=== PATIENT | male | born 1950 | race Caucasian/White ===

== ENCOUNTER → 2018-03-24 10:52 | Outpatient (CLI) | payer OTHER, SELFPAY ==
--- NOTE | 2018-03-24 10:57 | RAD_ITS ---
STUDY: X-RAY - RIGHT SHOULDER REASON FOR EXAM: Male, 67 years old. Pain TECHNIQUE: 4 view(s) of the shoulder. COMPARISON: None. FINDINGS: There is mild degenerative arthrosis of the glenohumeral articulation. There is degenerative arthrosis of the acromioclavicular joint without inferior osseous spur formation. Normal acromion. Normal humeral head and visualized proximal humerus. The soft tissue structures are unremarkable. Normal visualized pulmonary apex. RAD/Shoulder min 2 Views IMPRESSION: Degenerative arthrosis Electronically Signed: Rafael Santiago MD at 11:31 EDT , Service support ,
--- NOTE | 2018-03-24 10:58 | RAD_ITS ---
STUDY: X-RAY - LEFT SHOULDER REASON FOR EXAM: Male, 67 years old. Pain TECHNIQUE: 4 view(s) of the shoulder. COMPARISON: None. FINDINGS: Normal glenohumeral articulation. There is degenerative arthrosis of the acromioclavicular joint without inferior osseous spur formation. Normal acromion. Normal humeral head and visualized proximal humerus. The soft tissue structures are unremarkable. Normal visualized pulmonary apex. RAD/Shoulder min 2 Views IMPRESSION: Degenerative arthrosis Electronically Signed: Rafael Santiago MD at 11:33 EDT , Service support ,
== END ==
PROVIDERS: Visit Provider Chiropractor
DX: M19.011 Primary osteoarthritis, right shoulder (principal); M19.012 Primary osteoarthritis, left shoulder
CPT/HCPCS: 73030

== ENCOUNTER 2018-05-23 11:26 | Inpatient (IN) | payer OTHER, MEDICARE, SELFPAY ==
[2018-05-23] VITALS (14 sets, daily range): BP systolic 92–159; BP diastolic 56–94; PULSE 74–114; RESP 14–18; TEMP 36.4–37.4; O2SAT 93–98; BMI 21.9; BMI 21.8
--- NOTE | 2018-05-23 12:08 | CT_ITS ---
STUDY: CT ABDOMEN AND PELVIS WITHOUT CONTRAST REASON FOR EXAM: Male, 67 years old. Bilateral lower abdominal pain. RADIATION DOSAGE (If Supplied By Facility): CTDIvol = ( 8.32 ) mGy, DLP = ( 353.84 ) mGycm TECHNIQUE: Transaxial images were obtained from the dome of the diaphragm to the symphysis pubis without oral contrast, and without intravenous contrast. Sagittal and coronal images were reconstructed. Individualized dose optimization techniques were used for this CT. COMPARISON: None. FINDINGS: There is right basilar dependent atelectasis and possible airspace disease. There may be left basilar subsegmental atelectasis. No pleural effusions are visualized. The visualized portions of the heart are within normal limits. There is decreased attenuation of the liver consistent with steatosis. Normal gallbladder and extrahepatic biliary system. Normal spleen. Normal pancreas. Normal bilateral adrenal glands. Normal right kidney. Normal left kidney. There is a edema within the roper of the gastric antrum and pylorus. The roper measure up to 7.2 mm. There may be some enhancement of the gastric mucosa. The result of acute infection or inflammation. There appears to be dilated small bowel with enhancement of the roper of small bowel. Maximum transverse dimension of the small bowel is approximately 2.6 cm. Of fluid is visible within the distal small bowel. This appears to involve the ilium primarily appeared to proximal small bowel is not dilated. There appears to be some enhancement thickening of the roper of the jejunum. Stool is visible throughout the transverse colon. There is moderate amount of fluid within the pelvis. There is an appendicolith at the proximal appendix. There is a tubular, thick-walled appendix (>7mm), consistent with acute appendicitis. There is diffuse atherosclerotic calcification of the abdominal aorta with elongation and tortuosity, but without a demonstrated aneurysm. There is extensive atherosclerotic calcification of the common iliac arteries, internal and external iliac arteries. Normal inferior vena cava. Normal retroperitoneum. Urinary bladder wall is thickened measuring approximately 6.8 mm. Normal visualized prostate gland. Normal abdominal wall. There are diffuse degenerative changes of the visualized lumbar spine. The bones appear osteopenic. CT/Abdomen/Pelvis W IV Cont ONLY IMPRESSION: 1. Appears to be acute inflammation of the gastric antrum and pylorus. 2. Apparent enhancement and inflammation of the small bowel with questionable small bowel obstruction versus ileus. 3. CT findings suggestive of acute appendicitis with a moderate amount of pelvic fluid. N.B. : The above information has been verbally conveyed by Elisabeth Merchant MD to Maxwell Red MD, on 05/23/2018 14:19:54 (ET). Electronically Signed: Elisabeth Merchant MD at 14:20 EDT , Service support ,
--- NOTE | 2018-05-23 12:08 | EKG12_ITS ---
Test Reason : AB PAIN Blood Pressure : / mmHG Vent. Rate : 101 BPM Atrial Rate : 101 BPM P-R Int : 130 ms QRS Dur : 078 ms QT Int : 344 ms P-R-T Axes : 073 058 075 degrees QTc Int : 446 ms Sinus tachycardia Otherwise normal ECG Confirmed by CHARLES CHANDRA, MÓNICA ([id number]), editorial director JASPAL COATES ([id number]) on 05/26/2018 8:59:44 AM Referred By: MYRNA Confirmed By:MÓNICA SOTO MD
--- NOTE | 2018-05-23 12:10 | ED.VISSUMM ---
- ER Visit Summary Date of Service: 05/23/18 Chief Complaint: Abdominal pain History of Present Illness: The patient is a 67 M no senior past medical nor any prior surgical history. Patient states he developed lower abdominal pain yesterday. Denies any fever positive chills. Denies any dysuria. No melena. Nausea but no vomiting. Denies any abdominal trauma. Patient states the pain is in bilateral lower quadrants. Is not radiating to his back. He denies any hematuria. Denies any urinary retention. Physical Examination: Older male initial blood pressure 96/70 10 be rechecked. H EENT exam unremarkable moist wheeze membranes. Neck nontender. Lungs to auscultation bilaterally. Heart tachycardic rate about 115 no murmur. Chest wall nontender. Abdomen soft. Nondistended normal bowel sounds. Mild tenderness in both lower quadrants. No pulsatile mass. Right upper quadrant unremarkable. No signs of obstruction. External exam unremarkable nontender. No swelling. No hernias. Moving all 4 extremities. Neurovascularly intact. No edema. Back exam nontender. Neurologically is awake and alert with no focal motor deficits. Test Results: CBC is elevated with a white count of 13,000. Hemoglobin of 18. No bands. Electrolytes show sodium 133. Gap 11. Normal creatinine. Liver enzymes direct bilirubin slightly elevated at 1.1 alk phos elevated at 129. Lipase is normal. UA is pending. EKG sinus tachycardia rate of 101. CT abdomen and pelvis with IV contrast only shows what the radiologist feels is acute appendicitis. An ileus. There is also inflammation of the lower epigastric region and duodenum. There is pelvic fluid. No pneumoperitoneum per the radiologist. Film was read by the radiologist and reviewed by me. Emergency Department Course and Treatment: Treated with 1 L normal saline. If his pressures greater than 100 he received morphine and Zofran for his abdominal pain. Patient be started on IV Zosyn. I spoke to the on-call general surgeon Dr. Jose Lundberg to will be and evaluate the patient and is going to take him to the OR for suspected appendicitis. Treatment Plan: I discussed all test results with the patient and his . He will be prepared to be taken to the operating room. Disposition: [] Impression: Acute bilateral lower quadrant abdominal pain secondary to acute appendicitis Acute ileus Inflammation of the stomach and proximal small intestine This note was generated with Dragon dictation software. It may contain incorrect words, spelling, and punctuation that were not noted in review of the chart prior to signing ED Disposition - Plan for ED Patient: Chief Complaint: Abd Pain Referrals: Daniel Arce MD [Primary Care Provider] -
--- NOTE | 2018-05-23 12:15 | ED.RN ---
NO OLD EKG'S IN MUSE.
[2018-05-23] MEDS: 0.9% Normal Saline 1,000 ML 1000 ML IV (12:29)
[2018-05-23] MEDS: Ondansetron 4 MG/2 ML Vial IV (12:29)
[2018-05-23] MEDS: Morphine 4 MG/ML Syringe IV (12:30)
[2018-05-23 13:05] LABS: Absolute Lymphocyte Count 0.81 X10^3/ul (0.83-4.51); Absolute Neutrophil Count 11.8 X10^3/uL (2.0-7.7); Basophil# 0.02 X10^3/uL; Basophil% 0.2 % (0-1); Eosinophil# 0.03 X10^3/uL; Eosinophils% 0.2 % (0-5); Hematocrit 54.3 % (40-54); Hemoglobin 18.3 g/dl (13.0-16.5); Lymphocyte # 0.81 X10^3/ul (4.0); Lymphocyte % 6.2 % (19-41); Mean Corp Hgb Conc 33.7 g/gl (32-36); Mean Corpuscular Hgb 31.4 pg (27.0-32.0); Mean Corpuscular Volume 93.1 fL (80-94); Mean Platelet Vol. 11.2 fl (6.2-12.0); Monocyte# 0.33 X10^3/uL; Monocyte% 2.5 % (0-10); Neutrophil % 90.6 % (47-70); POSITIVE COUNT NO; POSITIVE DIFFERENTIAL NO; POSITIVE MORPHOLOGY NO; Platelet Count 273 K/mm3 (150-450); RBC Distribution Width CV 16.4 % (11.6-14.6); RBC Distribution Width SD 55.8 fl (35.1-43.9); Red Blood Count 5.83 M/mm3 (4.6-6.2)
[2018-05-23 13:08] LABS: AST(SGOT) 34 U/L (15-37); Alanine Aminotransfer ALT/SGPT 19 U/L (16-61); Albumin, Serum 3.8 g/dL (3.2-5.0); Alkaline Phosphatase 129 U/L (45-117); Anion Gap 11 (5-15); BUN 15 mg/dL (7-18); BUN/Creat Ratio 13.9 RATIO (10-20); Bilirubin, Direct 0.11 mg/dL (0.00-0.30); Calcium,Total 9.4 mg/dL (8.5-10.1); Chloride 97 mmol/L (98-107); Creatinine, Serum 1.08 mg/dL (0.70-1.30); EST Glomerular Filtration Rate 73 mL/min (>60); Est Glom Filt Rate - Afr Amer 88 mL/min (>60); Estimated Creatinine Clearance 55.25 ml/min; Globulin 4.4 g/dL (2.2-4.2); Glucose 156 mg/dL (74-106); Lipase 50 U/L (73-393); Potassium 5.1 mmol/L (3.5-5.1); Protein, Total 8.2 g/dL (6.4-8.2); Sodium Level 133 mmol/L (136-145)
--- NOTE | 2018-05-23 14:44 | NURSING ---
SURGERY KAMILAH APPENDICITIS THEN 213 OBS ILEUS, ACUTE APPENDICITIS KAMILAH
--- NOTE | 2018-05-23 15:28 | ED.RN ---
telephone report given to Frida in surgery. Denies questions. States team is ready for pt. Pt was escorted to AC/OR by ED JERSEY KNITTER in ED cot. Family at bedside, following pt down to waiting room.
--- NOTE | 2018-05-23 15:39 | PCM.HP.STD ---
Problem List (1) Perforated appendicitis Status: Acute History of Present Illness Date of Admission: 05/23/18 The patient is a 67 year old M who reports he has not been eating for the last 2 days. He says he started having lower abdominal pain yesterday around noon. He said that he is starting have chills. He is having nausea but no vomiting. He says the pain is in both lower quadrants. Past Medical History Allergies No Known Allergies Allergy (Verified 05/23/18 11:29) Home Medications: Ambulatory Orders Medication Instructions Recorded NK [NK] 05/23/18 Surgical History: no surgical history Smoking Status: Current every day smoker Alcohol: Occasional Drugs: None - *Family History Paternal History Items: No pertinent history Review of Systems Constitutional: Reports: Anorexia, Chills. Denies: Fever HEENT: Denies: Difficulty Swallowing Cardiovascular: Denies: Chest Pain Respiratory: Denies: Cough, Shortness of Breath Gastrointestinal: Reports: Abdominal Pain, Nausea. Denies: Diarrhea, Hematemesis, Hematochezia, Vomiting Genitourinary: Denies: Dysuria Musculoskeletal: Denies: Joint Tenderness Skin: Denies: Dryness, Jaundice Neurological: Denies: Difficulty swallowing, Incoordination Psychiatric: Denies: Anxiety Hematologic/ Lymphatic: Denies: Anemia VTE Information - Inpt Only VTE Present on Admission: No VTE Mechan Device Prophylaxis: SCD's Patient Problems: Active and Suspected Problems Perforated appendicitis (Acute) - Physical Exam General: Alert, Oriented x3, Cooperative HEENT: Atraumatic, PERRLA, EOMI, Normocephalic Oral: Moist Mucosa Neck: No JVD Lungs: Normal air movement Cardiovascular: Regular rate, Regular Rhythm Abdomen: Soft, Non-Distended, Guarding, Tender - Tender in the diffuse abdomen. Positive guarding. Extremities: No clubbing Musculoskeletal: No Muscle Wasting Neurological: Cranial nerves II-XII grossly intact Psych/Mental Status: Normal Affect, Appropriate Vital Signs Temp Pulse Resp BP Pulse Ox 97.8 F 98 16 117/93 H 95 05/23/18 14:38 05/23/18 14:44 05/23/18 14:44 05/23/18 14:44 05/23/18 14:44 Oxygen Delivery Method Room Air Weight: 128 lb Body Mass Index (BMI) 21.9 Laboratory Tests Past 24 Hrs 05/23/18 05/23/18 12:30 12:30 WBC 13.0 H RBC 5.83 Hgb 18.3 H* Hct 54.3 H MCV 93.1 MCH 31.4 MCHC 33.7 RDW 16.4 H RDW Differential 55.8 H Plt Count 273 MPV 11.2 Immature Gran % (Auto) 0.300 Neut % (Auto) 90.6 H Lymph % (Auto) 6.2 L Burleigh % (Auto) 2.5 Eos % (Auto) 0.2 Baso % (Auto) 0.2 Absolute Neuts (auto) 11.8 H Absolute Lymphs (auto) 0.81 L Total Counted Not Reportable Diff Path Review May foll Sodium 133 L Potassium 5.1 Chloride 97 L Carbon Dioxide 25.0 Anion Gap 11 BUN 15 Creatinine 1.08 Estim Creat Clear Calc 55.25 Est GFR (MDRD) Af Amer 88 Est GFR (MDRD) Non-Af 73 BUN/Creatinine Ratio 13.9 Glucose 156 H Calcium 9.4 Total Bilirubin 1.10 H Direct Bilirubin 0.11 AST 34 ALT 19 Alkaline Phosphatase 129 H Total Protein 8.2 Albumin 3.8 Globulin 4.4 H Lipase 50 L Clinical Impression(s) from Imaging Studies Abdomen/Pelvis CT 05/23/18 12:08 IMPRESSION: 1. Appears to be acute inflammation of the gastric antrum and pylorus. 2. Apparent enhancement and inflammation of the small bowel with questionable small bowel obstruction versus ileus. 3. CT findings suggestive of acute appendicitis with a moderate amount of pelvic fluid. N.B. : The above information has been verbally conveyed by Elisabeth Merchant MD to Maxwell Red MD, on 05/23/2018 14:19:54 (ET). Electronically Signed: Elisabeth Merchant MD at 14:20 EDT , Service support , Assessment/Plan All Active Problems Perforated appendicitis (Acute) 67-year-old male with free fluid possible perforated appendicitis 1. I reviewed the patient's CT scan. The patient has free fluid in his pelvis and around his liver. He also has thickening of the antrum and duodenum as well as dilation of small bowel. He has an appendicolith in the presumed appendix. It is likely that this is perforated appendicitis but it is possible that is another perforated viscus. I explained this to the patient and his . 2. I recommend expiratory laparoscopy immediately. I will identify the appendix and I did warn the patient of a possibility of ileocecectomy if there is necrosis and perforation. The stomach and duodenum will be inspected but it is possible they are inflamed because of fluid in the abdomen but this could be a perforated ulcer. The patient has been having no pain leading up to this and this is been sudden onset of pain. I explained the risks of the surgery including not limited to bleeding, infection, injury other organs such as the ureter bowels or blood vessels. I also explained the possibility of having to convert to a laparotomy and possibility of bowel resection. I explained that the patient would wake up with a drain and NG tube in place. The patient understands all this and his does as well. The consent for surgery. 3. Patient has been given Zosyn in the ER. Jose Sampson MD Pager: [facility] [address] [place] [address] [address] [place] [address] Office:
--- NOTE | 2018-05-23 15:43 | HP.PCM_ITS ---
Problem List (1) Perforated appendicitis Status: Acute History of Present Illness Date of Admission: 05/23/18 The patient is a 67 year old M who reports he has not been eating for the last 2 days. He says he started having lower abdominal pain yesterday around noon. He said that he is starting have chills. He is having nausea but no vomiting. He says the pain is in both lower quadrants. Past Medical History Allergies No Known Allergies Allergy (Verified 05/23/18 11:29) Home Medications: Ambulatory Orders Medication Instructions Recorded NK [NK] 05/23/18 Surgical History: no surgical history Smoking Status: Current every day smoker Alcohol: Occasional Drugs: None - *Family History Paternal History Items: No pertinent history Review of Systems Constitutional: Reports: Anorexia, Chills. Denies: Fever HEENT: Denies: Difficulty Swallowing Cardiovascular: Denies: Chest Pain Respiratory: Denies: Cough, Shortness of Breath Gastrointestinal: Reports: Abdominal Pain, Nausea. Denies: Diarrhea, Hematemesis, Hematochezia, Vomiting Genitourinary: Denies: Dysuria Musculoskeletal: Denies: Joint Tenderness Skin: Denies: Dryness, Jaundice Neurological: Denies: Difficulty swallowing, Incoordination Psychiatric: Denies: Anxiety Hematologic/ Lymphatic: Denies: Anemia VTE Information - Inpt Only VTE Present on Admission: No VTE Mechan Device Prophylaxis: SCD's Patient Problems: Active and Suspected Problems Perforated appendicitis (Acute) - Physical Exam General: Alert, Oriented x3, Cooperative HEENT: Atraumatic, PERRLA, EOMI, Normocephalic Oral: Moist Mucosa Neck: No JVD Lungs: Normal air movement Cardiovascular: Regular rate, Regular Rhythm Abdomen: Soft, Non-Distended, Guarding, Tender - Tender in the diffuse abdomen. Positive guarding. Extremities: No clubbing Musculoskeletal: No Muscle Wasting Neurological: Cranial nerves II-XII grossly intact Psych/Mental Status: Normal Affect, Appropriate Vital Signs Temp Pulse Resp BP Pulse Ox 97.8 F 98 16 117/93 H 95 05/23/18 14:38 05/23/18 14:44 05/23/18 14:44 05/23/18 14:44 05/23/18 14:44 Oxygen Delivery Method Room Air Weight: 128 lb Body Mass Index (BMI) 21.9 Laboratory Tests Past 24 Hrs 05/23/18 05/23/18 12:30 12:30 WBC 13.0 H RBC 5.83 Hgb 18.3 H* Hct 54.3 H MCV 93.1 MCH 31.4 MCHC 33.7 RDW 16.4 H RDW Differential 55.8 H Plt Count 273 MPV 11.2 Immature Gran % (Auto) 0.300 Neut % (Auto) 90.6 H Lymph % (Auto) 6.2 L [place] % (Auto) 2.5 Eos % (Auto) 0.2 Baso % (Auto) 0.2 Absolute Neuts (auto) 11.8 H Absolute Lymphs (auto) 0.81 L Total Counted Not Reportable Diff Path Review May foll Sodium 133 L Potassium 5.1 Chloride 97 L Carbon Dioxide 25.0 Anion Gap 11 BUN 15 Creatinine 1.08 Estim Creat Clear Calc 55.25 Est GFR (MDRD) Af Amer 88 Est GFR (MDRD) Non-Af 73 BUN/Creatinine Ratio 13.9 Glucose 156 H Calcium 9.4 Total Bilirubin 1.10 H Direct Bilirubin 0.11 AST 34 ALT 19 Alkaline Phosphatase 129 H Total Protein 8.2 Albumin 3.8 Globulin 4.4 H Lipase 50 L Clinical Impression(s) from Imaging Studies Abdomen/Pelvis CT 05/23/18 12:08 IMPRESSION: 1. Appears to be acute inflammation of the gastric antrum and pylorus. 2. Apparent enhancement and inflammation of the small bowel with questionable small bowel obstruction versus ileus. 3. CT findings suggestive of acute appendicitis with a moderate amount of pelvic fluid. N.B. : The above information has been verbally conveyed by Elisabeth Merchant MD to Maxwell Red MD, on 05/23/2018 14:19:54 (ET). Electronically Signed: Elisabeth Merchant MD at 14:20 EDT , Service support , Assessment/Plan All Active Problems Perforated appendicitis (Acute) 67-year-old male with free fluid possible perforated appendicitis 1. I reviewed the patient's CT scan. The patient has free fluid in his pelvis and around his liver. He also has thickening of the antrum and duodenum as well as dilation of small bowel. He has an appendicolith in the presumed appendix. It is likely that this is perforated appendicitis but it is possible that is another perforated viscus. I explained this to the patient and his . 2. I recommend expiratory laparoscopy immediately. I will identify the appendix and I did warn the patient of a possibility of ileocecectomy if there is necrosis and perforation. The stomach and duodenum will be inspected but it is possible they are inflamed because of fluid in the abdomen but this could be a perforated ulcer. The patient has been having no pain leading up to this and this is been sudden onset of pain. I explained the risks of the surgery including not limited to bleeding, infection, injury other organs such as the ureter bowels or blood vessels. I also explained the possibility of having to convert to a laparotomy and possibility of bowel resection. I explained that the patient would wake up with a drain and NG tube in place. The patient understands all this and his does as well. The consent for surgery. 3. Patient has been given Zosyn in the ER. Jose Sampson MD Pager: [phone] [address] [place] [address] [address] [place] [address] Office:
[2018-05-23] MEDS: Bupiv/Epi 0.5% Mpf 30 ML Vial (16:40)
--- NOTE | 2018-05-23 16:58 | EKG12_ITS ---
Test Reason : DISRHYTHMIA Blood Pressure : / mmHG Vent. Rate : 100 BPM Atrial Rate : 100 BPM P-R Int : 136 ms QRS Dur : 078 ms QT Int : 354 ms P-R-T Axes : 067 034 073 degrees QTc Int : 456 ms Normal sinus rhythm Nonspecific ST abnormality Abnormal ECG When compared with ECG of 23-MAY-2018 12:19, MANUAL COMPARISON REQUIRED, DATA IS UNCONFIRMED Confirmed by CHARLES CHANDRA, MÓNICA ([id number]), state editor JASPAL COATES ([id number]) on 05/28/2018 3:14:10 PM Referred By: Confirmed By:MÓNICA SOTO MD
--- NOTE | 2018-05-23 17:02 | OP.PCM_ITS ---
Problem List (1) Perforated appendicitis Status: Acute Report of Operation Date of Procedure: 05/23/18 Pre-Operative Diagnosis: Perforated viscus Post-Operative Diagnosis: Perforated appendicitis Surgery/Procedure Performed:: Laparoscopic appendectomy Description of Surgical Findings:: The patient had a perforation at this distal appendix with a copious amount of purulent fluid in the abdomen. Small bowel was edematous and dilated. Specimen's removed: Appendix Drains: JULIANA to bulb suction Description of Procedure: The patient was brought into the operating room and general anesthesia was induced. A Connelly catheter was placed. The left arm was tucked and the abdomen was prepped and draped in usual sterile fashion. A small midline incision was made inferior to the umbilicus and deepened to the level of the fascia. The fascia was elevated and incised. The peritoneum was also elevated and incised. A finger sweep was performed and a balloon trocar was placed into the abdomen and inflated. The abdomen was insufflated to 15 mmHg and the camera was inserted and the abdomen was inspected for any injuries upon entering the abdomen. There were none. The patient had copious purulent material throughout the abdomen. The patient was placed in Trendelenburg position and a 5 mm ports placed in the left lower quadrant and suprapubic areas under direct visualization. Next using atraumatic bowel graspers the appendix was identified. The appendix had a perforation of the distal part which was leaking purulent material. The appendix was grasped and elevated and and Enseal device was used to take down the mesoappendix. A stapler was used to come across the base of the appendix. The appendix was then placed in Endo Catch bag and removed through the umbilical incision. The staple line was inspected and found to be hemostatic and intact. The abdomen was then irrigated with 3 L of saline and suctioned as dry as I could. A 15 [place] round drain was placed in the left lower quadrant incision and positioned in the pelvis. This was placed to bulb suction and secured with a 3-0 nylon suture. The 2 5 mm ports are removed under direct visualization. The balloon trocar was deflated and removed and all the air was removed from the abdomen. The umbilical incision fascia was closed with an 0 Vicryl [id number] suture. The incisions were then irrigated with saline and dried. Local anesthetic was injected into the incision sites. The skin incisions were then closed with interrupted 4-0 Monocryl suture. Bandages were applied and the patient was awoken and taken to PACU in stable condition. The Connelly and NG tube remained in place at the end of the case. Patient tolerated the procedure well. - Admit VTE Documentation VTE Present on Admission: No VTE Mechan Device Prophylaxis: SCD's
[2018-05-23] MEDS: Dextrose 5%-Lactated Ringers 1,000 ML 125 ML IV (19:22)
[2018-05-23] MEDS: 0.9% NaCl Peripheral Flush Adult/Peds IV (19:23)
[2018-05-23] MEDS: Morphine 2 MG/ML Syringe IV (19:23)
[2018-05-23] MEDS: Piperacil/Tazobactam 3.375 GM/50 ML ML IV (21:55)
--- NOTE | 2018-05-24 | APP_PTH ---
PATIENT: MALA SADLER LOC: MS2 U#:[id number] AGE/SX: 67/M ROOM: [facility] RE05/23/[address]: Dr. Jose Sampson MD : [id number] BED: 1 DIS: 05/29/2018 SPEC #: [id number] RECD: 05/24/18 10:02 STATUS: ALEXEI REDalton #: [id number] RUTH: 05/24/18 00:[address]: Jose Sampson DEPT: SURGICAL PATHOLOGY RECD BY: Pietro Kumar ENTERED: 05/24/18 10:02 SP TYPE: APPENDIX OTHR DR: Dr. Daniel Arce MD Tissues: Appendix, NOS Procedures: Surgery Specimen Level III HEADER OPERATION: Laparoscopic appendectomy PRE-OP DIAGNOSIS: Perforated viscous TISSUE SUBMITTED: Appendix MICROSCOPIC DIAGNOSIS Appendix: Acute appendicitis and periappendicitis. SJ:henry 05/25/18 MICROSCOPIC DESCRIPTION Slides are reviewed. GROSS DESCRIPTION Received is one container labeled with the patient's name and designated appendix. The specimen consists of a vermiform appendix measuring 6.5 cm in length and 1.5 cm in average diameter. No gross perforations are evident. Sections reveal fecaliths. Dice Spotter sections are submitted in one cassette. / AM:henry 05/24/18 TC:2 CPT: 05154
[2018-05-24] MEDS: Dextrose 5%-Lactated Ringers 1,000 ML 125 ML IV ×3 (02:29→18:36)
[2018-05-24 02:36] VITALS: BP 106/67; PULSE 76; RESP 18; TEMP 37.2; O2SAT 97
[2018-05-24] MEDS: Morphine 2 MG/ML Syringe IV ×2 (02:42→18:36)
[2018-05-24] MEDS: Piperacil/Tazobactam 3.375 GM/50 ML ML IV ×3 (05:55→22:36)
[2018-05-24 06:24] LABS: Bacteria 0 SEEN /hpf (None Seen); Mucous, Urine 0 SEEN /hpf (<or=2+); Red Blood Cells-Urine 0 SEEN /hpf (0-5)
[2018-05-24 06:27] LABS: Absolute Lymphocyte Count 1.26 X10^3/ul (0.83-4.51); Basophil# 0.01 X10^3/uL; Basophil% 0.1 % (0-1); Eosinophil# 0.02 X10^3/uL; Eosinophils% 0.1 % (0-5); Hematocrit 40.6 % (40-54); Hemoglobin 13.7 g/dl (13.0-16.5); Lymphocyte # 1.26 X10^3/ul (4.0); Mean Corp Hgb Conc 33.7 g/gl (32-36); Mean Corpuscular Hgb 31.5 pg (27.0-32.0); Mean Corpuscular Volume 93.3 fL (80-94); Mean Platelet Vol. 10.6 fl (6.2-12.0); Monocyte# 0.65 X10^3/uL; Monocyte% 4.7 % (0-10); Neutrophil # 11.98 X10^3/uL (2.7-7.7); Platelet Count 229 K/mm3 (150-450); RBC Distribution Width CV 16.4 % (11.6-14.6); Red Blood Count 4.35 M/mm3 (4.6-6.2); White Blood Count 13.9 K/mm3 (4.4-11.0)
[2018-05-24 06:36] LABS: POSITIVE COUNT NO; POSITIVE DIFFERENTIAL NO; POSITIVE MORPHOLOGY NO
[2018-05-24 06:40] LABS: Anion Gap 7 (5-15); BUN 9 mg/dL (7-18); Calcium,Total 8.1 mg/dL (8.5-10.1); Chloride 104 mmol/L (98-107); Creatinine, Serum 0.69 mg/dL (0.70-1.30); EST Glomerular Filtration Rate 122 mL/min (>60); Est Glom Filt Rate - Afr Amer 147 mL/min (>60); Glucose 169 mg/dL (74-106); Potassium 3.8 mmol/L (3.5-5.1); Sodium Level 138 mmol/L (136-145)
[2018-05-24 07:30] VITALS: BP 119/71; PULSE 76; RESP 16; TEMP 36.9; O2SAT 95
[2018-05-24 07:37] VITALS: RESP 16
[2018-05-24 07:44] LABS: Color, Urine Yellow (Yellow); Glucose, Dipstick Normal (Normal); Ketone-Dipstick Negative (Negative); Leukocyte Esterase-Dipstick 25 /ul (Negative); Nitrite-Dipstick Negative (Negative); Occult Blood-Urine 150 /ul (Negative); Protein-Dipstick 15 mg/dl (Negative); Specific Gravity, Urine 1.015 (1.002-1.030); Urine Bilirubin Dipstick Negative (Negative); Urine Clarity Sl. Cloudy (Clear); Urine Urobilinogen 1 mg/dl (Normal)
[2018-05-24 07:50] LABS: Squamous Epithelial Cells - UA 0-5 SEEN /hpf (0-5); White Blood Cells 0-5 SEEN /hpf (0-5)
--- NOTE | 2018-05-24 08:08 | PN.SURG_ITS ---
Patient Problems: Active and Suspected Problems Perforated appendicitis (Acute) Subjective: Patient is doing well overnight and he reports improvement of pain. - Physical Exam General: Alert, Oriented x3, Cooperative Lungs: Normal air movement Cardiovascular: Regular rate, Regular Rhythm Abdomen: Soft, Non-Distended, Tender - Mildly tender, - - Incisions are clean, dry and intact. JULIANA is serous. Vital Signs Temp Pulse Resp BP Pulse Ox 98.4 F 76 16 119/71 95 05/24/18 07:30 05/24/18 07:30 05/24/18 07:37 05/24/18 07:30 05/24/18 07:30 Oxygen Delivery Method Room Air Weight: 127 lb 3.2 oz Body Mass Index (BMI) 21.8 Intake and Output for Last 24 Hours 05/22/18 05/23/18 05/24/18 23:59 23:59 23:59 Intake Total 2040 / 2040 1555.7 / 1555.7 Output Total 555 / 555 720 / 720 Balance 1485 / 1485 835.7 / 835.7 Laboratory Tests Past 24 Hrs 05/24/18 05/24/18 05/24/18 06:05 06:05 06:05 WBC 13.9 H RBC 4.35 L Hgb 13.7 Hct 40.6 MCV 93.3 MCH 31.5 MCHC 33.7 RDW 16.4 H RDW Differential 55.0 H Plt Count 229 MPV 10.6 Immature Gran % (Auto) 0.100 Neut % (Auto) 86.0 H Lymph % (Auto) 9.0 L [place] % (Auto) 4.7 Eos % (Auto) 0.1 Baso % (Auto) 0.1 Absolute Neuts (auto) 12.0 H Absolute Lymphs (auto) 1.26 Total Counted Not Reportable Sodium 138 Potassium 3.8 Chloride 104 Carbon Dioxide 27.0 Anion Gap 7 BUN 9 Creatinine 0.69 L Estim Creat Clear Calc 59.30 Est GFR (MDRD) Af Amer 147 Est GFR (MDRD) Non-Af 122 BUN/Creatinine Ratio 13.0 Glucose 169 H Calcium 8.1 L Urine Color Yellow Urine Clarity Sl. Cloudy Urine pH 6.0 Ur Specific [place] 1.015 Urine Protein 15 H Urine Glucose (UA) Normal Urine Ketones Negative Urine Occult Blood 150 H Urine Nitrite Negative Urine Bilirubin Negative Urine Urobilinogen 1 H Ur Leukocyte Esterase 25 H Urine RBC 0 SEEN Urine WBC 0-5 SEEN Ur Squamous Epith Cells 0-5 SEEN Urine Bacteria 0 SEEN Urine Mucus 0 SEEN Medical Necessity - Tobacco Use Smoking Status: Current every day smoker Assessment/Plan All Active Problems Perforated appendicitis (Acute) 67-year-old male status post laparoscopic perforated appendectomy 1. Patient is doing well this morning. He has had little to no output from his NG. I will remove this. I plan on keeping the patient n.p.o. until he passes flatus. I feel that he is likely going to have a postoperative ileus. 2. Continue IV antibiotics. Continue JULIANA drainage 3. Good urine output through the night. I will DC his Connelly. Jose Sampson MD Pager: [facility] [address] [place] [address], [address] [place] [address] Office:
[2018-05-24] MEDS: Enoxaparin 40 MG/0.4 ML Syringe SC (09:52)
--- NOTE | 2018-05-24 11:33 | CASEMGMT ---
RN JAYDON Assessment completed. See Link. DC PLAN: home with family support Intro role of CM to patient and his . Pt was independent prior to surgery. Plan is to return home and can assist. Questions answered re: plan of care-NG out, no diet until passes flatus. Cedric MORROWN RN ACM
[2018-05-24 12:51] LABS: Pathologist Review Reviewed
[2018-05-24 13:35] VITALS: BP 112/70; PULSE 85; RESP 12; TEMP 37.4; O2SAT 96
[2018-05-24 15:30] VITALS: BP 118/69; PULSE 80; RESP 18; TEMP 37.3; O2SAT 98
[2018-05-24] MEDS: 0.9% NaCl Peripheral Flush Adult/Peds IV ×3 (16:57→21:47)
[2018-05-24] MEDS: Ondansetron 4 MG/2 ML Vial IV (16:57)
--- NOTE | 2018-05-24 19:40 | RAD_ITS ---
STUDY: X-RAY - ABDOMEN/PELVIS REASON FOR EXAM: Male, 67 years old. Nausea, recent appendectomy TECHNIQUE: Supine views of the abdomen and pelvis were obtained. COMPARISON: CT abdomen and pelvis dated May 23, 2018 FINDINGS: The lung bases are unremarkable. There are dilated loops of small bowel in the mid abdomen. There is minimal free air on the right side of the abdomen consistent with recent surgery. There is a drainage catheter in the right pelvis and right lower quadrant. The soft tissues are unremarkable. There are moderate degenerative changes in the visualized spine. RAD/Abdomen Single View (Portable) IMPRESSION: There are dilated loops of small bowel in the mid abdomen consistent with severe ileus or partial obstruction. Electronically Signed: Alicia Musa MD at 20:15 EDT Tel Direct: [phone], Service support ,
[2018-05-24 21:15] VITALS: BP 118/76; PULSE 75; RESP 16; TEMP 36.7; O2SAT 94
[2018-05-24] MEDS: 0.9% Normal Saline 1,000 ML 999 ML IV (21:31)
--- NOTE | 2018-05-24 21:45 | RAD_ITS ---
STUDY: X-RAY - ABDOMEN/PELVIS REASON FOR EXAM: Male, 67 years old. NG placement. TECHNIQUE: Supine view of the abdomen is submitted. COMPARISON: 7:45 PM. FINDINGS: Nasogastric tube is identified in the distal esophagus. Multiple dilated loops of small bowel are consistent with obstruction. Catheter tubing is projected over the pelvis. No abnormal calcifications are seen. Mild degenerative changes of the lumbar spine are noted. RAD/Abdomen Single View (Portable) IMPRESSION: 1. NG tube terminates in the distal esophagus. This should be advanced at least 6 cm. 2. Small bowel obstruction. Electronically Signed: Bre Zhang MD at 23:13 EDT Tel , Service support ,
[2018-05-24] MEDS: proMETHazine 25 MG/ML Syringe 6.25 MG IV (21:47)
--- NOTE | 2018-05-24 21:47 | RAD_ITS ---
STUDY: X-RAY - ABDOMEN/PELVIS REASON FOR EXAM: Male, 67 years old. NG tube placement TECHNIQUE: Single AP view of the abdomen / pelvis. COMPARISON: May 24, 2018 9:43 PM FINDINGS: Normal visualized lung bases. There are multiple distended loops of small bowel centrally. There is a drain or tubing overlying the right lower quadrant. An NG tube is place tip is in the stomach with side-port is in the distal esophagus. Liver spleen and kidney sare obscured. RAD/Abdomen Single View (Portable) IMPRESSION: Findings suspicious for high-grade ileus or possible small bowel obstruction. There is a drain or tubing overlying the right lower quadrant. NG tube tip is in the stomach. The side-port is in the distal esophagus and could be advanced 5 cm. Electronically Signed: Gricelda Mancia MD at 23:06 EDT Tel , Service support ,
[2018-05-25] MEDS: Dextrose 5%-Lactated Ringers 1,000 ML 125 ML IV ×3 (01:41→18:40)
[2018-05-25] MEDS: Piperacil/Tazobactam 3.375 GM/50 ML ML IV ×3 (05:39→21:49)
[2018-05-25] MEDS: Ondansetron 4 MG/2 ML Vial IV (05:46)
[2018-05-25] MEDS: 0.9% NaCl Peripheral Flush Adult/Peds IV ×2 (05:46→08:27)
[2018-05-25 06:59] LABS: Absolute Lymphocyte Count 0.98 X10^3/ul (0.83-4.51); Absolute Neutrophil Count 11.5 X10^3/uL (2.0-7.7); Basophil# 0.01 X10^3/uL; Basophil% 0.1 % (0-1); Eosinophil# 0.14 X10^3/uL; Eosinophils% 1.1 % (0-5); Hematocrit 39.8 % (40-54); Hemoglobin 13.4 g/dl (13.0-16.5); Lymphocyte # 0.98 X10^3/ul (4.0); Lymphocyte % 7.4 % (19-41); Mean Corp Hgb Conc 33.7 g/gl (32-36); Mean Corpuscular Hgb 31.7 pg (27.0-32.0); Mean Corpuscular Volume 94.1 fL (80-94); Mean Platelet Vol. 10.6 fl (6.2-12.0); Monocyte# 0.59 X10^3/uL; Monocyte% 4.4 % (0-10); Neutrophil # 11.53 X10^3/uL (2.7-7.7); Neutrophil % 86.8 % (47-70); Platelet Count 232 K/mm3 (150-450); RBC Distribution Width CV 16.2 % (11.6-14.6); RBC Distribution Width SD 54.3 fl (35.1-43.9); Red Blood Count 4.23 M/mm3 (4.6-6.2); White Blood Count 13.3 K/mm3 (4.4-11.0)
[2018-05-25 07:03] LABS: POSITIVE COUNT NO; POSITIVE DIFFERENTIAL NO; POSITIVE MORPHOLOGY NO
[2018-05-25 07:41] LABS: Anion Gap 9 (5-15); BUN 6 mg/dL (7-18); BUN/Creat Ratio 10.2 RATIO (10-20); Calcium,Total 8.2 mg/dL (8.5-10.1); Chloride 103 mmol/L (98-107); Creatinine, Serum 0.59 mg/dL (0.70-1.30); EST Glomerular Filtration Rate 146 mL/min (>60); Est Glom Filt Rate - Afr Amer 176 mL/min (>60); Glucose 164 mg/dL (74-106); Potassium 3.5 mmol/L (3.5-5.1); Sodium Level 139 mmol/L (136-145)
--- NOTE | 2018-05-25 07:54 | PCM.PN.SRG ---
Patient Problems: Active and Suspected Problems Perforated appendicitis (Acute) Subjective: Patient had a lot of nausea last night and a KUB revealed dilated small bowel. His NG was replaced. He says since then he has been placed he is now a nausea and his abdominal pain is improved. He is still not passing any flatus. - Physical Exam General: Alert, Oriented x3, Cooperative Neck: Supple Lungs: Normal air movement Cardiovascular: Regular rate, Regular Rhythm Abdomen: Soft, Distended - Mildly distended, Tender Vital Signs Temp Pulse Resp BP Pulse Ox 98.1 F 75 16 118/76 94 05/24/18 21:15 05/24/18 21:15 05/24/18 21:15 05/24/18 21:15 05/24/18 21:15 Oxygen Delivery Method Room Air Weight: 127 lb 3.2 oz Body Mass Index (BMI) 21.8 Intake and Output for Last 24 Hours 05/23/18 05/24/18 05/25/18 23:59 23:59 23:59 Intake Total 2040 / 2040 3233.7 / 3233.7 2589.4 / 2589.4 Output Total 555 / 555 1355 / 1355 1300 / 1300 Balance 1485 / 1485 1878.7 / 1878.7 1289.4 / 1289.4 Laboratory Tests Past 24 Hrs 05/23/18 05/25/18 05/25/18 12:30 06:29 06:29 WBC 13.3 H RBC 4.23 L Hgb 13.4 Hct 39.8 L MCV 94.1 H MCH 31.7 MCHC 33.7 RDW 16.2 H RDW Differential 54.3 H Plt Count 232 MPV 10.6 Immature Gran % (Auto) 0.200 Neut % (Auto) 86.8 H Lymph % (Auto) 7.4 L [place] % (Auto) 4.4 Eos % (Auto) 1.1 Baso % (Auto) 0.1 Absolute Neuts (auto) 11.5 H Absolute Lymphs (auto) 0.98 Total Counted Not Reportable Diff Path Review Reviewed Sodium 139 Potassium 3.5 Chloride 103 Carbon Dioxide 27.0 Anion Gap 9 BUN 6 L Creatinine 0.59 L Estim Creat Clear Calc 59.30 Est GFR (MDRD) Af Amer 176 Est GFR (MDRD) Non-Af 146 BUN/Creatinine Ratio 10.2 Glucose 164 H Calcium 8.2 L Clinical Impression(s) from Imaging Studies KUB X-Ray 05/24/18 19:40 IMPRESSION: There are dilated loops of small bowel in the mid abdomen consistent with severe ileus or partial obstruction. Electronically Signed: Alicia Musa MD at 20:15 EDT Tel Direct: [phone], Service support , KUB X-Ray 05/24/18 21:45 IMPRESSION: 1. NG tube terminates in the distal esophagus. This should be advanced at least 6 cm. 2. Small bowel obstruction. Electronically Signed: Bre Zhang MD at 23:13 EDT Tel , Service support , KUB X-Ray 05/24/18 21:47 IMPRESSION: Findings suspicious for high-grade ileus or possible small bowel obstruction. There is a drain or tubing overlying the right lower quadrant. NG tube tip is in the stomach. The side-port is in the distal esophagus and could be advanced 5 cm. Electronically Signed: Gricelda Mancia MD at 23:06 EDT Tel , Service support , Medical Necessity - Tobacco Use Smoking Status: Current every day smoker Assessment/Plan All Active Problems Perforated appendicitis (Acute) 67-year-old male status post laparoscopic appendectomy for perforated appendicitis 1. The patient is having a postoperative ileus. His NG tube is putting out bilious material. I informed that his NG would stay in place until he is passing flatus. 2. Patient still having copious drainage from his JULIANA. Likely DC the JULIANA tomorrow. 3. Continue antibiotics and n.p.o. with IV fluids. SCDs, PPI, start Lovenox. Jose Sampson MD Pager: [facility] [address] [place] [address], [address] [place] [address] Office:
[2018-05-25] MEDS: Morphine 2 MG/ML Syringe IV (08:27)
[2018-05-25] MEDS: proMETHazine 25 MG/ML Syringe 6.25 MG IV (08:27)
[2018-05-25 08:42] VITALS: BP 142/82; PULSE 72; RESP 16; TEMP 36.8; O2SAT 97
[2018-05-25] MEDS: Enoxaparin 40 MG/0.4 ML Syringe SC (10:21)
[2018-05-25 14:47] VITALS: BP 144/84; PULSE 73; RESP 18; TEMP 36.8; O2SAT 97
[2018-05-25 21:55] VITALS: BP 132/87; PULSE 77; RESP 18; TEMP 37.1; O2SAT 94
[2018-05-26] MEDS: Dextrose 5%-Lactated Ringers 1,000 ML 125 ML IV (03:00)
[2018-05-26 05:21] LABS: Absolute Lymphocyte Count 1.23 X10^3/ul (0.83-4.51); Absolute Neutrophil Count 7.7 X10^3/uL (2.0-7.7); Basophil# 0.02 X10^3/uL; Basophil% 0.2 % (0-1); Eosinophil# 0.31 X10^3/uL; Eosinophils% 3.2 % (0-5); Hematocrit 37.6 % (40-54); Hemoglobin 12.7 g/dl (13.0-16.5); Lymphocyte # 1.23 X10^3/ul (4.0); Lymphocyte % 12.6 % (19-41); Mean Corp Hgb Conc 33.8 g/gl (32-36); Mean Corpuscular Hgb 31.6 pg (27.0-32.0); Mean Corpuscular Volume 93.5 fL (80-94); Monocyte# 0.55 X10^3/uL; Monocyte% 5.6 % (0-10); Neutrophil # 7.67 X10^3/uL (2.7-7.7); Neutrophil % 78.2 % (47-70); Platelet Count 244 K/mm3 (150-450); RBC Distribution Width CV 15.4 % (11.6-14.6); RBC Distribution Width SD 51.4 fl (35.1-43.9); Red Blood Count 4.02 M/mm3 (4.6-6.2); White Blood Count 9.8 K/mm3 (4.4-11.0)
[2018-05-26] MEDS: Piperacil/Tazobactam 3.375 GM/50 ML ML IV ×3 (05:26→21:05)
[2018-05-26 05:33] VITALS: BP 135/88; PULSE 71; RESP 18; TEMP 36.9; O2SAT 94
[2018-05-26 05:37] LABS: Anion Gap 8 (5-15); BUN 4 mg/dL (7-18); BUN/Creat Ratio 6.2 RATIO (10-20); Calcium,Total 8.1 mg/dL (8.5-10.1); Chloride 100 mmol/L (98-107); Creatinine, Serum 0.65 mg/dL (0.70-1.30); EST Glomerular Filtration Rate 131 mL/min (>60); Est Glom Filt Rate - Afr Amer 159 mL/min (>60); Glucose 172 mg/dL (74-106); Potassium 3.2 mmol/L (3.5-5.1); Sodium Level 137 mmol/L (136-145)
[2018-05-26 05:43] LABS: POSITIVE COUNT NO; POSITIVE DIFFERENTIAL NO; POSITIVE MORPHOLOGY NO
--- NOTE | 2018-05-26 08:27 | PN.SURG_ITS ---
Patient Problems: Active and Suspected Problems Perforated appendicitis (Acute) Subjective: Patient evaluated resting comfortably in bed. He notes much improved in energy this morning. He is noting minimal amount of RLQ tenderness. He denies nausea, vomiting. Negative flatus, BM. He has been up ambulating the hallway a few times yesterday. He denies fever. - Physical Exam General: Alert, Oriented x3, Cooperative HEENT: - - NG tube intact with light bilious fluid output Abdomen: Bowel Sounds Present, Soft, Tender - RLQ minimal tenderness, - - Incisions c/d/i. No erythema or infection noted. JULIANA drain intact. Serous drainage in the bulb and on the dressing around the JULIANA drain. Vital Signs Temp Pulse Resp BP Pulse Ox 98.4 F 71 18 135/88 H 94 05/26/18 05:33 05/26/18 05:33 05/26/18 05:33 05/26/18 05:33 05/26/18 05:33 Oxygen Delivery Method Room Air Weight: 127 lb 3.2 oz Body Mass Index (BMI) 21.8 Intake and Output for Last 24 Hours 05/24/18 05/25/18 05/26/18 23:59 23:59 23:59 Intake Total 3233.7 / 3233.7 5159.4 / 5159.4 852 / 852 Output Total 1355 / 1355 3530 / 3530 1020 / 1020 Balance 1878.7 / 1878.7 1629.4 / 1629.4 -168 / -168 Laboratory Tests Past 24 Hrs 05/26/18 05/26/18 05:10 05:10 WBC 9.8 RBC 4.02 L Hgb 12.7 L Hct 37.6 L MCV 93.5 MCH 31.6 MCHC 33.8 RDW 15.4 H RDW Differential 51.4 H Plt Count 244 MPV 10.0 Immature Gran % (Auto) 0.200 Neut % (Auto) 78.2 H Lymph % (Auto) 12.6 L [place] % (Auto) 5.6 Eos % (Auto) 3.2 Baso % (Auto) 0.2 Absolute Neuts (auto) 7.7 Absolute Lymphs (auto) 1.23 Total Counted Not Reportable Sodium 137 Potassium 3.2 L Chloride 100 Carbon Dioxide 29.0 Anion Gap 8 BUN 4 L Creatinine 0.65 L Estim Creat Clear Calc 59.30 Est GFR (MDRD) Af Amer 159 Est GFR (MDRD) Non-Af 131 BUN/Creatinine Ratio 6.2 L Glucose 172 H Calcium 8.1 L Medical Necessity - Tobacco Use Smoking Status: Current every day smoker Assessment/Plan All Active Problems Perforated appendicitis (Acute) I am following this patient in conjunction with Dr. Lucero in Dr. Sampson's absence. Impression: S/p laparoscopic appendectomy for ruptured appendicitis Continue to encourage ambulation and I.S. Remove JULIANA drain tomorrow. Will replace potassium Will order Cepacol throat lozenge Continue NG tube until flatus Continue NPO Continue antibiotics We will continue to monitor this patient Code Visit Inpatient E&M: 94490 Subs Hosp L1 - NO CHARGE; POST-OP
[2018-05-26 08:52] VITALS: BP 138/85; PULSE 70; RESP 18; TEMP 36.6; O2SAT 95
[2018-05-26] MEDS: Enoxaparin 40 MG/0.4 ML Syringe SC ×2 (08:55→08:57)
[2018-05-26] MEDS: BENZOCAINE/MENTHOL 1 LOZENGE 2 LOZENGE MUCOUS MEM (08:58)
[2018-05-26] MEDS: Dextrose 5%-Lactated Ringers 1,000 ML 75 ML IV (12:04)
[2018-05-26 14:35] VITALS: BP 138/87; PULSE 70; RESP 18; TEMP 37; O2SAT 96
[2018-05-26 21:06] VITALS: BP 130/84; PULSE 64; RESP 16; TEMP 36.9; O2SAT 95
[2018-05-27 02:30] VITALS: BP 129/84; PULSE 64; RESP 16; TEMP 37.2; O2SAT 95
[2018-05-27] MEDS: Dextrose 5%-Lactated Ringers 1,000 ML 75 ML IV (05:18)
[2018-05-27] MEDS: Piperacil/Tazobactam 3.375 GM/50 ML ML IV ×3 (05:18→21:35)
[2018-05-27 05:34] LABS: Absolute Lymphocyte Count 1.32 X10^3/ul (0.83-4.51); Absolute Neutrophil Count 6.3 X10^3/uL (2.0-7.7); Basophil# 0.04 X10^3/uL; Basophil% 0.5 % (0-1); Eosinophil# 0.29 X10^3/uL; Eosinophils% 3.4 % (0-5); Hematocrit 40.5 % (40-54); Hemoglobin 13.3 g/dl (13.0-16.5); Lymphocyte # 1.32 X10^3/ul (4.0); Lymphocyte % 15.5 % (19-41); Mean Corp Hgb Conc 32.8 g/gl (32-36); Mean Corpuscular Hgb 30.4 pg (27.0-32.0); Mean Corpuscular Volume 92.7 fL (80-94); Mean Platelet Vol. 9.9 fl (6.2-12.0); Monocyte# 0.59 X10^3/uL; Monocyte% 6.9 % (0-10); Neutrophil # 6.26 X10^3/uL (2.7-7.7); Neutrophil % 73.6 % (47-70); Platelet Count 252 K/mm3 (150-450); RBC Distribution Width CV 15.2 % (11.6-14.6); Red Blood Count 4.37 M/mm3 (4.6-6.2); White Blood Count 8.5 K/mm3 (4.4-11.0)
[2018-05-27 05:37] LABS: POSITIVE COUNT NO; POSITIVE DIFFERENTIAL NO; POSITIVE MORPHOLOGY NO
[2018-05-27 05:55] LABS: Anion Gap 10 (5-15); BUN 5 mg/dL (7-18); BUN/Creat Ratio 8.5 RATIO (10-20); Calcium,Total 8.5 mg/dL (8.5-10.1); Chloride 100 mmol/L (98-107); Creatinine, Serum 0.59 mg/dL (0.70-1.30); EST Glomerular Filtration Rate 146 mL/min (>60); Est Glom Filt Rate - Afr Amer 177 mL/min (>60); Glucose 119 mg/dL (74-106); Potassium 3.5 mmol/L (3.5-5.1); Sodium Level 137 mmol/L (136-145)
[2018-05-27] MEDS: Morphine 2 MG/ML Syringe IV (06:17)
[2018-05-27 09:00] VITALS: BP 133/72; PULSE 69; RESP 16; TEMP 37.2; O2SAT 97
--- NOTE | 2018-05-27 09:11 | PN.SURG_ITS ---
Patient Problems: Active and Suspected Problems Perforated appendicitis (Acute) Subjective: Patient evaluated resting comfortably in bed. Patient denies nausea, vomiting. He denies abdominal pain/discomfort. Negative flatus, BM. - Physical Exam General: Alert, Oriented x3, Cooperative Abdomen: Soft, Non Tender, Hypoactive Bowel Sounds, - - Incisions c/d/i. No erythema or infection noted. JULIANA drain was removed. Vital Signs Temp Pulse Resp BP Pulse Ox 98.9 F 64 16 129/84 H 95 05/27/18 02:30 05/27/18 02:30 05/27/18 02:30 05/27/18 02:30 05/27/18 02:30 Oxygen Delivery Method Room Air Weight: 127 lb 3.307 oz Body Mass Index (BMI) 21.8 Intake and Output for Last 24 Hours 05/25/18 05/26/18 05/27/18 23:59 23:59 23:59 Intake Total 5159.4 / 5159.4 1825 / 1825 1153 / 1153 Output Total 3530 / 3530 2019 / 2019 1300 / 1300 Balance 1629.4 / 1629.4 -195 / -195 -147 / -147 Laboratory Tests Past 24 Hrs 05/27/18 05/27/18 05:10 05:10 WBC 8.5 RBC 4.37 L Hgb 13.3 Hct 40.5 MCV 92.7 MCH 30.4 MCHC 32.8 RDW 15.2 H RDW Differential 52.0 H Plt Count 252 MPV 9.9 Immature Gran % (Auto) 0.100 Neut % (Auto) 73.6 H Lymph % (Auto) 15.5 L [place] % (Auto) 6.9 Eos % (Auto) 3.4 Baso % (Auto) 0.5 Absolute Neuts (auto) 6.3 Absolute Lymphs (auto) 1.32 Total Counted Not Reportable Sodium 137 Potassium 3.5 Chloride 100 Carbon Dioxide 27.0 Anion Gap 10 BUN 5 L Creatinine 0.59 L Estim Creat Clear Calc 59.30 Est GFR (MDRD) Af Amer 177 Est GFR (MDRD) Non-Af 146 BUN/Creatinine Ratio 8.5 L Glucose 119 H Calcium 8.5 Medical Necessity - Tobacco Use Smoking Status: Current every day smoker Assessment/Plan All Active Problems Perforated appendicitis (Acute) I am following this patient in conjunction with Dr. Lucero in Dr. Sampson's absence. Impression: S/p laparoscopic appendectomy for ruptured appendicitis Continue to encourage ambulation and I.S. Labs reviewed Continue NG tube until flatus Continue NPO Continue antibiotics We will continue to monitor this patient Code Visit Inpatient E&M: 74468 Subs Hosp L1 - NO CHARGE; POST-OP
[2018-05-27] MEDS: 0.9% NaCl Peripheral Flush Adult/Peds IV ×2 (10:43→15:19)
[2018-05-27 15:10] VITALS: BP 129/64; PULSE 64; RESP 16; TEMP 36.8; O2SAT 94
--- NOTE | 2018-05-27 18:10 | NURSING ---
reviewed and agree with charting by Nati Engle, student nurse
[2018-05-27 20:15] VITALS: BP 135/79; PULSE 63; RESP 18; TEMP 37.1; O2SAT 97
[2018-05-28 02:30] VITALS: BP 138/88; PULSE 60; RESP 16; TEMP 37; O2SAT 97
[2018-05-28] MEDS: Dextrose 5%-Lactated Ringers 1,000 ML 75 ML IV (05:21)
[2018-05-28] MEDS: Piperacil/Tazobactam 3.375 GM/50 ML ML IV ×3 (05:22→21:42)
[2018-05-28 06:26] LABS: Anion Gap 8 (5-15); BUN 7 mg/dL (7-18); BUN/Creat Ratio 11.8 RATIO (10-20); Calcium,Total 8.3 mg/dL (8.5-10.1); Chloride 99 mmol/L (98-107); Creatinine, Serum 0.59 mg/dL (0.70-1.30); EST Glomerular Filtration Rate 145 mL/min (>60); Est Glom Filt Rate - Afr Amer 175 mL/min (>60); Glucose 113 mg/dL (74-106); Potassium 3.3 mmol/L (3.5-5.1); Sodium Level 134 mmol/L (136-145)
--- NOTE | 2018-05-28 07:51 | PCM.PN.SRG ---
Patient Problems: Active and Suspected Problems Perforated appendicitis (Acute) Subjective: + small amount of flatus, no n/v - Physical Exam General: Alert, Oriented x3, Cooperative, No apparent distress Lungs: Normal air movement Cardiovascular: Regular rate Abdomen: Soft, Distended - minimal, Tender - sore minimal, - - incisions/prev. JULIANA site healing well Vital Signs Temp Pulse Resp BP Pulse Ox 98.6 F 60 16 138/88 H 97 05/28/18 02:30 05/28/18 02:30 05/28/18 02:30 05/28/18 02:30 05/28/18 02:30 Oxygen Delivery Method Room Air Weight: 127 lb 3.307 oz Body Mass Index (BMI) 21.8 Intake and Output for Last 24 Hours 05/26/18 05/27/18 05/28/18 23:59 23:59 23:59 Intake Total 1825 / 1825 2278 / 2278 517 / 517 Output Total 2019 / 2019 1825 / 1825 825 / 825 Balance -195 / -195 453 / 453 -308 / -308 Laboratory Tests Past 24 Hrs 05/28/18 05:55 Sodium 134 L Potassium 3.3 L Chloride 99 Carbon Dioxide 27.0 Anion Gap 8 BUN 7 Creatinine 0.59 L Estim Creat Clear Calc 59.30 Est GFR (MDRD) Af Amer 175 Est GFR (MDRD) Non-Af 145 BUN/Creatinine Ratio 11.8 Glucose 113 H Calcium 8.3 L Medical Necessity - Tobacco Use Smoking Status: Current every day smoker Assessment/Plan All Active Problems Perforated appendicitis (Acute) will keep on sips until increased BF replace K continue amb
[2018-05-28] MEDS: Enoxaparin 40 MG/0.4 ML Syringe SC (10:38)
[2018-05-28 13:42] VITALS: BP 142/76; PULSE 66; RESP 16; TEMP 36.7; O2SAT 96
[2018-05-28 21:24] VITALS: BP 151/86; PULSE 64; RESP 18; TEMP 36.8; O2SAT 97
[2018-05-28] MEDS: MELATONIN 10 MG TABLET 5 MG PO (23:45)
[2018-05-29] MEDS: Dextrose 5%-Lactated Ringers 1,000 ML 75 ML IV (01:10)
[2018-05-29 03:40] VITALS: BP 132/72; PULSE 58; RESP 16; TEMP 36.7; O2SAT 95
--- NOTE | 2018-05-29 05:20 | PCM.PN.SRG ---
Patient Problems: Active and Suspected Problems Perforated appendicitis (Acute) Subjective: Patient tolerated full liquid diet still having bowel function flatus/bowel movements - Physical Exam General: Alert, Oriented x3, Cooperative, No apparent distress Lungs: Normal air movement Cardiovascular: Regular rate, Regular Rhythm Abdomen: Soft, Non-Distended, Tender - Patient states lower abdomen still sore but no guarding or rebound, - - Incisions clean dry and intact, previous JULIANA site healing well Neurological: Cranial nerves II-XII grossly intact Vital Signs Temp Pulse Resp BP Pulse Ox 98.1 F 58 L 16 132/72 H 95 05/29/18 03:40 05/29/18 03:40 05/29/18 03:40 05/29/18 03:40 05/29/18 03:40 Oxygen Delivery Method Room Air Weight: 127 lb 3.307 oz Body Mass Index (BMI) 21.8 Intake and Output for Last 24 Hours 05/27/18 05/28/18 05/29/18 23:59 23:59 23:59 Intake Total 2278 / 2278 2422 / 2422 Output Total 1825 / 1825 1725 / 1725 Balance 453 / 453 697 / 697 Laboratory Tests Past 24 Hrs 05/28/18 05:55 Sodium 134 L Potassium 3.3 L Chloride 99 Carbon Dioxide 27.0 Anion Gap 8 BUN 7 Creatinine 0.59 L Estim Creat Clear Calc 59.30 Est GFR (MDRD) Af Amer 175 Est GFR (MDRD) Non-Af 145 BUN/Creatinine Ratio 11.8 Glucose 113 H Calcium 8.3 L Medical Necessity - Tobacco Use Smoking Status: Current every day smoker Assessment/Plan All Active Problems Perforated appendicitis (Acute) Advance to a regular diet if patient tolerates may be able to go home later this afternoon. We will change antibiotics to Augmentin and also DC with Augmentin. Ale Lucero M.D. Pager: [phone] [facility] [address] [place] [address], [facility], [address] [place] [address] Office: [phone]
--- NOTE | 2018-05-29 05:23 | PN.SURG_ITS ---
Patient Problems: Active and Suspected Problems Perforated appendicitis (Acute) Subjective: Patient tolerated full liquid diet still having bowel function flatus/bowel movements - Physical Exam General: Alert, Oriented x3, Cooperative, No apparent distress Lungs: Normal air movement Cardiovascular: Regular rate, Regular Rhythm Abdomen: Soft, Non-Distended, Tender - Patient states lower abdomen still sore but no guarding or rebound, - - Incisions clean dry and intact, previous JULIANA site healing well Neurological: Cranial nerves II-XII grossly intact Vital Signs Temp Pulse Resp BP Pulse Ox 98.1 F 58 L 16 132/72 H 95 05/29/18 03:40 05/29/18 03:40 05/29/18 03:40 05/29/18 03:40 05/29/18 03:40 Oxygen Delivery Method Room Air Weight: 127 lb 3.307 oz Body Mass Index (BMI) 21.8 Intake and Output for Last 24 Hours 05/27/18 05/28/18 05/29/18 23:59 23:59 23:59 Intake Total 2278 / 2278 2422 / 2422 Output Total 1825 / 1825 1725 / 1725 Balance 453 / 453 697 / 697 Laboratory Tests Past 24 Hrs 05/28/18 05:55 Sodium 134 L Potassium 3.3 L Chloride 99 Carbon Dioxide 27.0 Anion Gap 8 BUN 7 Creatinine 0.59 L Estim Creat Clear Calc 59.30 Est GFR (MDRD) Af Amer 175 Est GFR (MDRD) Non-Af 145 BUN/Creatinine Ratio 11.8 Glucose 113 H Calcium 8.3 L Medical Necessity - Tobacco Use Smoking Status: Current every day smoker Assessment/Plan All Active Problems Perforated appendicitis (Acute) Advance to a regular diet if patient tolerates may be able to go home later this afternoon. We will change antibiotics to Augmentin and also DC with Augmentin. Ale Lucero M.D. Pager: [phone] [facility] [address] [place] [address], [facility], [address] [place] [address] Office: [phone]
--- NOTE | 2018-05-29 05:26 | DCINST_ITS ---
Discharge Diet: Light diet - advance as tolerated Discharge Activity: May Shower May shower in (days): 0 Lifting Restrictions: No lifting greater than 20 pounds for 4 weeks Call your doctor if your incision/area has: Continuous Slow Oozing, Sudden Increased Bleeding, Increased Pain/ Swelling, Increased Redness, Foul Smelling Discharge, Swelling at the incision site Call your doctor if you observe: Fever of 101 or Higher Change Dressing in (Days):: 1 - Change the previous JULIANA site dressing daily till there is no drainage no okay to leave open Cleanse incision/area with: Soap & Water Allergies/Adverse Reactions: Allergies No Known Allergies Allergy (Verified 05/23/18 11:29) Medications to take at Discharge Amoxicillin/Potassium Clav [Augmentin 875-125 Tablet] 1 each PO BID #8 tablet 05/29/18 The following prescriptions were given: Amoxicillin/Potassium Clav [Augmentin 875-125 Tablet] 1 each PO BID #8 tablet Primary Care Physician: Daniel Arce MD [Primary Care Provider] - Test Results: Test results from this visit will be discussed in further detail at your follow- up appointment, if applicable. Please Follow Up With: Jose Sampson MD - After 5:00pm/weekends call [phone] with any concerns When: All the office for a follow-up appointment in 2 weeks Proposed Discharge Date: 05/29/18
--- NOTE | 2018-05-29 05:26 | PCM.DC.SUM ---
Discharge Date and Diagnosis - Problem List Patient Problems: Active and Suspected Problems Perforated appendicitis (Acute) Date of Admission: 05/23/18 Date of Discharge: 05/29/18 - Primary Discharge Diagnosis Active and Suspected Problems Perforated appendicitis (Acute) Hospital Course and Treatment Operations: appendectomy Procedures: None Summary of Care Provided: The patient is a 67 year old M patient presented to the ER 05/[address] due to abdominal pain CT abdomen pelvis was done which was consistent with a perforated appendicitis with free fluid in the abdomen. Patient was taken for lap scopic appendectomy on 05/23/[address] Sampson. He found a perforated appendicitis with purulent material throughout the abdomen. The appendix was removed and the abdomen was irrigated with fluid patient was continued on his Zosyn IV antibiotics throughout his hospitalization. Patient did require his NG to be placed back in a few days after surgery due to nausea and vomiting and a postoperative ileus. Patient also initially had a JULIANA placed at time of surgery which only drained serous fluid and was removed on 05/27/18. Slowly his ileus did improve when he started to have bowel function the NG was able to be removed and the patient was able to be started on a clear diet which he tolerated which was slowly advanced and he was able to tolerate a regular diet prior to discharge and was having bowel function. Discharge Diet: Light diet - advance as tolerated Discharge Activity: May Shower May shower in (days): 0 Call your doctor if your incision/area has: Continuous Slow Oozing, Sudden Increased Bleeding, Increased Pain/ Swelling, Increased Redness, Foul Smelling Discharge, Swelling at the incision site Call your doctor if you observe: Fever of 101 or Higher Change Dressing in (Days):: 1 - Change the previous JULIANA site dressing daily till there is no drainage no okay to leave open Cleanse incision/area with: Soap & Water Home Medications: Medications to take at Discharge Amoxicillin/Potassium Clav [Augmentin 875-125 Tablet] 1 each PO BID #8 tablet 05/29/18 Following Prescrptions Were Given to Patient: Amoxicillin/Potassium Clav [Augmentin 875-125 Tablet] 1 each PO BID #8 tablet Primary Care Physician: Daniel Arce MD [Primary Care Provider] - Please Follow Up With: Jose Sampson MD - After 5:00pm/weekends call [phone] with any concerns When: All the office for a follow-up appointment in 2 weeks Disposition: Home Minutes spent on discharge:: 15 Patient Condition:: Good Medical Necessity - Tobacco Use Smoking Status: Current every day smoker Meaningful Use Info Meaningful Use Diagnoses (Choose all that apply): None applicable
--- NOTE | 2018-05-29 05:29 | DS.PCM_ITS ---
Discharge Date and Diagnosis - Problem List Patient Problems: Active and Suspected Problems Perforated appendicitis (Acute) Date of Admission: 05/23/18 Date of Discharge: 05/29/18 - Primary Discharge Diagnosis Active and Suspected Problems Perforated appendicitis (Acute) Hospital Course and Treatment Operations: appendectomy Procedures: None Summary of Care Provided: The patient is a 67 year old M patient presented to the ER 05/23 due to abdominal pain CT abdomen pelvis was done which was consistent with a perforated a ppendicitis with free fluid in the abdomen. Patient was taken for lap scopic appendectomy on 05/23/[address] Sampson. He found a perforated appendicitis with purulent material throughout the abdomen. The appendix was removed and the abdomen was irrigated with fluid patient was continued on his Zosyn IV antibiotics throughout his hospitalization. Patient did require his NG to be placed back in a few days after surgery due to nausea and vomiting and a postoperative ileus. Patient also initially had a JULIANA placed at time of surgery which only drained serous fluid and was removed on 05/27/18. Slowly his ileus did improve when he started to have bowel function the NG was able to be removed and the patient was able to be started on a clear diet which he tolerated which was slowly advanced and he was able to tolerate a regular diet prior to discharge and was having bowel function. Discharge Diet: Light diet - advance as tolerated Discharge Activity: May Shower May shower in (days): 0 Call your doctor if your incision/area has: Continuous Slow Oozing, Sudden Increased Bleeding, Increased Pain/ Swelling, Increased Redness, Foul Smelling Discharge, Swelling at the incision site Call your doctor if you observe: Fever of 101 or Higher Change Dressing in (Days):: 1 - Change the previous JULIANA site dressing daily till there is no drainage no okay to leave open Cleanse incision/area with: Soap & Water Home Medications: Medications to take at Discharge Amoxicillin/Potassium Clav [Augmentin 875-125 Tablet] 1 each PO BID #8 tablet 05/29/18 Following Prescrptions Were Given to Patient: Amoxicillin/Potassium Clav [Augmentin 875-125 Tablet] 1 each PO BID #8 tablet Primary Care Physician: Daniel Arce MD [Primary Care Provider] - Please Follow Up With: Jose Sampson MD - After 5:00pm/weekends call [phone] with any concerns When: All the office for a follow-up appointment in 2 weeks Disposition: Home Minutes spent on discharge:: 15 Patient Condition:: Good Medical Necessity - Tobacco Use Smoking Status: Current every day smoker Meaningful Use Info Meaningful Use Diagnoses (Choose all that apply): None applicable
[2018-05-29 09:40] VITALS: BP 145/90; PULSE 71; RESP 16; TEMP 36.8; O2SAT 99
[2018-05-29] MEDS: Amox/Clavulanate 875 MG Tablet PO (10:47)
== END 2018-05-29 11:08 | disposition home or self-care (01) | DRG 339 ==
LOC: ED 13:51 → SDC 14:46 → AC 14:55 → SDC 18:41 → MS2 18:41
PROVIDERS: Surgery; Admitting Provider Surgery; Emergency Provider Emergency Medicine; Family Provider Family Medicine; PCP Family Medicine; Visit Provider Surgery
PROC: 0DTJ4ZZ Resection of Appendix, Percutaneous Endoscopic Approach (ICD-10-PCS; CPT 44970; principal; 2018-05-23 15:30)
DX: K35.2 Acute appendicitis with generalized peritonitis (principal); K91.89 Other postprocedural complications and disorders of digestive system; K56.7 Ileus, unspecified; Z23 Encounter for immunization
CPT/HCPCS: 36415; 74018; 74177; 80048; 80076; 81001; 83690; 85025; 88304; 93005; 99285; J7030; J7040; Q9967; 90686; A4216; C1760; J2405

== ENCOUNTER 2025-04-12 14:04 | Emergency (ER) | payer OTHER, SELFPAY ==
[2025-04-12 14:04] VITALS: BP 153/89; PULSE 93; RESP 17; TEMP 36.1; O2SAT 97
--- NOTE | 2025-04-12 15:08 | ED.VIS.BACK ---
HPI History of Present Illness Chief Complaint: Back Narrative Narrative: Patient is a 74-year-old male presenting emergency department for chronic back pain. Patient states that he injured his back in 1985 and since then has been having on and off issues with his back. States he had no recent trauma to his back. States that has been seeing the chiropractor and they told him to come to the ED for an MRI of his spine. Patient states that sometimes he has some tingling down the left lateral portion of his leg. He denies fever, chills, bowel or bladder incontinence or retention, saddle anesthesia, numbness or weakness in his legs. He has been taking Aleve for pain control at home. [facility] Medical History Perforated appendicitis Home Medications ?Medication ?Instructions ?Recorded ?Last Taken ?Type amoxicillin 875 mg-potassium 1 ea PO BID #8 tabs 05/29/18 Unknown Rx clavulanate 125 mg tablet cyclobenzaprine 5 mg tablet 5 mg PO TID PRN muscle spasm #14 04/12/25 Unknown Rx tabs lidocaine 5 % topical patch 1 patch topical DAILY #15 ea 04/12/25 Unknown Rx (Lidoderm) Allergy/AdvReac Type Severity Reaction Status Date / Time No Known Allergies Allergy Verified 04/12/25 14:06 Family History Mother Diabetes Father Heart disease Surgical History S/P laparoscopic appendectomy (~05/23/18) Social History Smoking Status: Current every day smoker tobacco type: cigarettes alcohol intake: current alcohol intake frequency: a few times a week substance use type: does not use ROS ROS ED ROS Narrative see HPI EXAM Physical Exam Narrative Exam Narrative: Vital signs: Reviewed General: Alert and oriented. No acute distress HEENT: Head is normocephalic and atraumatic, sinuses nontender, pupils equal round and reactive. Nares are patent. Oropharynx and throat exams normal. Neck: Supple without lymphadenopathy nontender Cardiovascular: Regular rate and rhythm, no murmurs. No rubs or gallops. Normal S1 and S2 Respiratory: Clear to auscultation bilaterally. No wheezes, rales, rhonchi Abdominal: Soft and nontender. Normal bowel sounds. No guarding or rebound. Nonsurgical abdomen Extremities: No tenderness. No bruising. Normal range of motion. Normal sensation. No midline cervical, thoracic or lumbar spinal tenderness to palpation. No step-offs or deformities. There is tenderness to palpation in the lumbar paraspinal muscles bilaterally as well as down into the SI joint. 5 out of 5 strength in bilateral lower extremities with hip flexion extension and knee flexion extension. Sensation intact in bilateral lower extremities. No erythema or bruising to the back. Skin: No rash or redness. Neurological: Cranial nerves II through XII are grossly intact. Normal strength and sensation. Normal cerebellar function The rest of the physical exam is unremarkable Const Vital Signs: 04/12/25 14:04 Temperature 96.9 F L Temperature Source Temporal Pulse Rate 93 Respiratory Rate 17 Blood Pressure 153/89 H Blood Pressure Mean 110 Pulse Ox 97 Oxygen Delivery Method Room Air MDM MDM MDM Narrative Medical decision making narrative: Patient is a 74-year-old male presenting to the emergency department for chronic back pain. Patient was seen and examined. Vitals are stable. Patient resting bed comfortably no acute distress. Differential includes but is not limited to: MSK back pain, sciatica less likely cauda equina, infectious back pain including epidural spinal abscess No fever. No red flag back pain signs for cauda equina or epidural spinal abscess. back pain has been present since 1985. Most recently had a flare of back pain for the past few months. Likely MSK given paraspinal tenderness to palpation. Patient able to ambulate without difficulty. Given toradol, flexeril and lidoderm patch. Patient does not have primary care follow-up, he was given a referral here. He was prescribed Flexeril and lidocaine patches for home. Instructed to take Aleve or naproxen as he has been and add Tylenol as well. He was given strict return precautions if develops any worsening back pain, numbness or weakness of his legs, bowel or bladder incontinence, fevers or saddle anesthesia. Patient discharged from the Emergency Department. I do not feel that the patient's evaluation reveals any acute reason for admission at this time. I instructed them to either follow-up with their primary care physician or promptly return to the Emergency Department for reevaluation should symptoms worsen or new symptoms develop. I explained what symptoms would indicate the need to return to the emergency department. Shared decision making was used. The patient voiced understanding of the treatment plan and is agreeable with it. Impression: 1. Chronic back pain History & Record Review Discussion w/independent historian: Patient and Family Discharge Plan Triage Chief Complaint: Back ED Provider: Namrata Gonsales Dx/Rx/DC Orders Clinical Impression: Chronic back pain Instructions: ED Back Pain (Acute or Chronic), ED Back Sprain/Strain Prescriptions: New cyclobenzaprine 5 mg tablet 5 mg PO TID PRN (Reason: muscle spasm) Qty: 14 0RF lidocaine [Lidoderm] 5 % adhesive patch,medicated 1 patch topical DAILY Qty: 15 0RF Rx Instructions: leave on most painful area for up to 12 hrs No Action amoxicillin-pot clavulanate 1 EACH tablet 1 ea PO BID Qty: 8 0RF Primary Care Provider: Care Physician,No Primary Referrals: Daniel Arce MD [Non-Staff] - Naina Torrez DO [Med Staff - Active Staff] - 2 Days Activity Restrictions/Additional Instructions: Your evaluation in the Emergency Department did not reveal any acute reason for admission. However, I want to emphasize that you may be early in the course of a disease process or illness even if it is not present. For this reason you should follow-up within 24 hours for reevaluation with either your primary care physician or if necessary back here in the Emergency Department. You should return to the Emergency Department immediately if your symptoms worsen or new symptoms develop. Continue to take Aleve for pain control. You can also add Tylenol. Take the Flexeril as prescribed as well. You can apply lidocaine patch to your back. I provided you with a primary care doctor to follow-up with, call today. Print Language: Urdu Disposition Disposition: Home, Self Care
[2025-04-12] MEDS: Lidocaine 5% Patch 1 PATCH TOPICAL (15:25)
[2025-04-12] MEDS: Ketorolac 30 MG/ML Syringe IM (15:26)
== END 2025-04-12 15:51 | disposition home or self-care (01) ==
PROVIDERS: Emergency Provider Student in an Organized Health Care Education/Training Program; Referring Provider Student in an Organized Health Care Education/Training Program; Visit Provider Student in an Organized Health Care Education/Training Program
DX: G89.29 Other chronic pain (principal); M54.9 Dorsalgia, unspecified; F17.210 Nicotine dependence, cigarettes, uncomplicated
CPT/HCPCS: 96374; 99282

== ENCOUNTER 2025-05-17 16:09 | Emergency (ER) | payer OTHER, SELFPAY ==
[2025-05-17 16:11] VITALS: BP 126/81; PULSE 87; RESP 15; TEMP 36.6; O2SAT 97
[2025-05-17 16:14] VITALS: BMI 20.5
--- NOTE | 2025-05-17 17:12 | EDS_ITS ---
HPI History of Present Illness Chief Complaint: Back Narrative Narrative: Chief complaint and HPI: 74-year-old male with past medical history of chronic lumbar back pain with left-sided radiculopathy presents for evaluation of MRI results showing cauda equina. Patient states all summer he has been having progressively worsening back pain. Endorses left-sided radiculopathy and occasional right-sided radiculopathy. States he periodically sees a chiropractor with adjustments. States he was scheduled for an outpatient MRI by his PCP which was performed today. States he had a call from the office stating he need to present emergently for concern for cauda equina. Patient states at baseline he has some paresthesias in the left lower extremity, not any worse than his baseline. Denies any new weakness, urinary retention, stool or urinary incontinence. Denies saddle anesthesias. Denies any fever, chills, nausea, vomiting. Was able to ambulate into the emergency department. Back pain is not any worse than his baseline. Review of systems: See HPI Medications: As listed on the chart Allergies: As listed on the chart PFSH: Per chart Vital signs: As listed on the chart. Reviewed. Physical exam: Gen: A&O x3, NAD Head: Normocephalic, atraumatic Eyes: No sclera icterus, conjunctiva clear, PERRL ENT: Moist mucous membranes Neck: Trachea midline, full range of motion CV: RRR, no murmurs, no peripheral edema Resp: Lungs CTA BL, no w/r/c GI: Abd soft, non-distended, non-tender, no r/r/g Rectal: Normal external examination. No evidence of hemorrhoids or fissures. Normal tone and sensation. No masses, fluctuance, or tenderness. No pain out of proportion. No saddle paresthesias. Musc: Full ROM, no deformity, no midline spinal tenderness, no bony step-offs, mild tenderness to palpation of the paraspinal musculature bilaterally of the lumbar spine, no cellulitis or external signs of trauma, strength +5/5 in all extremities, DTR +2/5 at patellar and Achilles bilaterally, DP/PT pulses +2 bilaterally, sensation intact and equal in the bilateral lower extremities, ambulates without difficulty Skin: Warm, dry Neuro: Alert, oriented, grossly intact, no focal deficits Psych: Cooperative, appropriate mood and affect PFSH PFSH Medical History Perforated appendicitis Home Medications ?Medication ?Instructions ?Recorded ?Last Taken ?Type amoxicillin 875 mg-potassium 1 ea PO BID #8 tabs 05/29 Unknown Rx clavulanate 125 mg tablet cyclobenzaprine 5 mg tablet 5 mg PO TID PRN muscle spa sm #14 04/12/25 Unknown Rx tabs lidocaine 5 % topical patch 1 patch topical DAILY #15 ea 04/12/25 Unknown Rx (Lidoderm) Allergy/AdvReac Type Severity Reaction Status Date / Time No Known Allergies Allergy Verified 05/17/25 16:15 Family History Mother Diabetes Father Heart disease Surgical History S/P laparoscopic appendectomy (~05/23/18) Social History Smoking Status: Current every day smoker tobacco type: cigarettes alcohol intake: current alcohol intake frequency: a few times a week substance use type: does not use EXAM Physical Exam Const Vital Signs: 05/17/25 16:11 Temperature 97.9 F Temperature Source Temporal Pulse Rate 87 Respiratory Rate 15 Blood Pressure 126/81 H Blood Pressure Mean 96 Pulse Ox 97 Oxygen Delivery Method Room Air MDM MDM MDM Narrative Medical decision making narrative: 74-year-old male with past medical history of chronic lumbar back pain with left-sided radiculopathy presents for evaluation of MRI results showing cauda equina. Patient states all summer he has been having progressively worsening back pain. Endorses left-sided radiculopathy and occasional right-sided radiculopathy. States he periodically sees a chiropractor with adjustments. States he was scheduled for an outpatient MRI by his PCP which was performed today. States he had a call from the office stating he need to present emergently for concern for cauda equina. Patient states that his back pain is n ot any worse than his baseline. He denies any new weakness, urinary retention, stool or urinary incontinence. No saddle anesthesias. On presentation, patient has normal gait. No acute distress. Vitals are stable. He is nontoxic- appearing. Physical exam is not consistent with cauda equina syndrome. See physical exam findings. I am unable to visualize the MRI imaging given that it was performed at [facility]. We did ask [facility] to push over the imaging. I was able to get the MRI results faxed to me. Given that I did not receive a call by the primary care physician, I did personally contact and discuss the patient with Dr. Soto. He states that clinically he did not present with the symptoms of cauda equina as well in his office however given the read he wanted him evaluated. I do not personally have spinal surgery on-call today however the physician is Dr. Myrick. Will give him a call in hopes to discuss the patient. A postvoid residual was performed and patient is not retaining any urine. He only had 45 mL in his bladder after urinating. In case patient will need surgery, I will order basic labs. These were eventually canceled as no surgery was planned after talking to Dr. Myrick. MRI results show spondylitic changes most significant at L4/5 with superimposed central/left subarticular disc extrusion contributing to severe canal stenosis, and right foraminal disc extrusion contributing to severe right foraminal narrowing. The conus is within normal limits of signal intensity and morphology. Marked effacement of the lumbar canal L4/5 with compression of the cauda equina. I was able to speak with Dr. Myrick over the phone. Patient's physical exam as well as MRI results were discussed. Patient does not clinically presents with an acute cauda equina. Plan is to discharge home on a steroid taper and follow-up in his office as well as PCP. Strict return precautions. Patient was updated with results and the plan. He confirmed understanding. I did update his PCP Dr. Soto with the plan as well who confirmed understanding. Patient is able to discharge home. We were later able to obtain a disc which we will send to radiology to operate to have in our system. Will send the patient back home with the disc. Impression: 1. Chronic lumbar back pain with left-sided radiculopathy 2. MRI results concerning for cauda equina Discharge Plan Triage Chief Complaint: Back ED Provider: Geo Fontenot Dx/Rx/DC Orders Prescriptions: No Action amoxicillin-pot clavulanate 1 EACH tablet 1 ea PO BID Qty: 8 0RF cyclobenzaprine 5 mg tablet 5 mg PO TID PRN (Reason: muscle spasm) Qty: 14 0RF lidocaine [Lidoderm] 5 % adhesive patch,medicated 1 patch topical DAILY Qty: 15 0RF Rx Instructions: leave on most painful area for up to 12 hrs Primary Care Provider: Bishop Soto Referrals: Bishop Soto MD [Primary Care Provider, Medical] Print Language: St Helen[place]
[2025-05-17 17:47] VITALS: BP 126/81; PULSE 87; RESP 15; TEMP 36.6; O2SAT 97
== END 2025-05-17 18:03 | disposition home or self-care (01) ==
PROVIDERS: Emergency Provider Surgery; PCP Family Medicine; Visit Provider Surgery
DX: M54.16 Radiculopathy, lumbar region (principal); Z90.49 Acquired absence of other specified parts of digestive tract; F17.210 Nicotine dependence, cigarettes, uncomplicated; G89.29 Other chronic pain
CPT/HCPCS: 99282; A4216

== ENCOUNTER 2025-05-31 11:42 | Day surgery (SDC) | payer OTHER, SELFPAY ==
--- NOTE | 2025-05-25 08:14 | EKG12_ITS ---
Test Reason : PREOP Blood Pressure : */* mmHG Vent. Rate : 87 BPM Atrial Rate : 87 BPM P-R Int : 98 ms QRS Dur : 76 ms QT Int : 352 ms P-R-T Axes : * 46 -66 degrees QTcB Int : 423 ms Low right atrial rhythm with short VT Nonspecific T wave abnormality Abnormal ECG Confirmed by Karel Santos ([id number]), non linear editor FRANKLIN GROVE ([id number]) on 05/26/2025 5:52:32 AM Referred By: Benedict Myrick Confirmed By: Karel Santos
[2025-05-25 09:33] LABS: Hematocrit 44.0 % (40-54); Hemoglobin 15.1 g/dL (13.0-16.5); Immature Granulocytes Count 0.050 X10^3/uL (0.0-0.0); Mean Corp Hgb Conc 34.3 g/dL (32-36); Mean Corpuscular Volume 98.0 fL (80-94); Mean Platelet Vol. 10.3 fl (6.2-12.0); NRBC Flagged by Analyzer 0 % (0-5); Platelet Count 289 K/mm3 (150-450); RBC Distribution Width CV 12.7 % (11.6-14.6); RBC Distribution Width SD 45.7 fl (35.1-43.9); Red Blood Count 4.49 M/mm3 (4.6-6.2); White Blood Count 13.6 K/mm3 (4.4-11.0)
[2025-05-25 10:07] LABS: Magnesium 2.3 mg/dL (1.5-2.2)
[2025-05-25 10:09] LABS: Anion Gap 13 (5-15); BUN 22 mg/dL (4-19); BUN/Creat Ratio 31.0 RATIO (10-20); Calcium,Total 9.3 mg/dL (7.6-11.0); Carbon Dioxide 25.3 mmol/L (21.0-32.0); Chloride 95 mmol/L (98-108); Glucose 232 mg/dL (70-99); Potassium 4.2 mmol/L (3.3-5.1)
--- NOTE | 2025-05-25 17:56 | PAT.ANE_ITS ---
Pre-Assessment Diagnosis/Proposed Procedure Planned Operative Procedure(s): Lumbar laminectomy discectomy L4-5 Anesthesia History Anesthesia History - house admin: Anesthesia History - house admin Hx Hospitalization No 05/24/25 11:07 Any Problems With Anesthesia No 05/24/25 11:07 Cholinesterase deficiency No 05/24/25 11:07 You/Your Family Experience No 05/24/25 11:07 fever (hyperthermia) with Relationship Recent Exposure to Contagious Disease Does patient have nerve No 05/24/25 11:07 stimulator Patient instructed to have device shut off --Does patient have Pacemaker or ICD? When Was Last Pacemaker Check QUESTION #4 FULL TEXT: You/Your Family Experience fever (hyperthermia) with Anesthesia Last Oral Intake Last Oral intake: Last Oral Intake NPO since Meds taken in AM with sips of water? Meds patient instructed to take am of surgery PONV PONV - house admin: PONV - house admin Female No 05/24/25 11:07 HX of Motion Sickness No 05/24/25 11:07 HX of N/V After Surgery No 05/24/25 11:07 Non-Smoker No 05/24/25 11:07 Duration of Surgery greater Yes 05/24/25 11:07 than 60 minutes Number of Risk Factors 1 05/24/25 11:07 PONV Score Low Risk 05/24/25 11:07 Height & Weight Height & Weight: Anesthesia: Height & Weight Height 5 ft 4 in 05/19/25 13:21 Respiratory Assessment Respiratory Assessment - house admin: Respiratory Tract Infection Hx - house admin Hx Respiratory Tract Infection No 05/24/25 11:07 STOP Sleep Apnea STOP Sleep Apnea - house admin: STOP Sleep Apnea - house admin Hx Hypertension No 05/24/25 11:07 Hx Sleep Apnea No 05/24/25 11:07 CPAP BIPAP Do you snore loudly (louder No 05/24/25 11:07 than talking or can be heard Do you often feel tired/ No 05/24/25 11:07 fatigued/ sleepy during daytime? Has anyone observed you stop No 05/24/25 11:07 breathing during sleep? STOP Results Negative 05/24/25 11:07 QUESTION #5 FULL TEXT : Do you snore loudly (louder than talking or can be heard through closed doors)? 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 Specify any problems Hx of Preganancy in last 3 N/A 05/24/25 11:07 Months Nurse Filling Out Transfusion VCHRISTIN 05/24/25 11:07 & Questions: Date: 05/24/25 05/24/25 11:07 Time: 11:07 05/24/25 11:07 Patient unable to answer at this time (ie. confused, unrespo /Reproduction History /Reproductive History - house admin: /Reproductive Hx- house admin Hx Now No 05/24/25 11:07 Gestational Age (in weeks): EDC: Hx Hx Para Hx Section SAB No 05/24/25 11:07 [facility] Medical History (Updated 05/25/25 @ 00:00 by Marty Kennedy) Wears dentures Wears glasses History of steroid therapy Arthritis Blood in urine Back pain Injury of back Smoker History of pain when walking History of edema Perforated appendicitis Home Medications ?Medication ?Instructions ?Recorded ?Last Taken ?Type prednisone 10 mg tablet 10 mg PO DAILY #48 TABLETS 0 05/17/25 Unknown Rx naproxen sodium 220 mg capsule 220 mg PO BID PRN pain 05/19/25 Unknown History (Aleve) lidocaine 5 % topical patch 1 patch topical DAILY 05/02 12/23 Unknown History Allergy/AdvReac Type Severity Reaction Status Date / Time No Known Allergies Allergy Verified 05/24/25 10:52 Family History Mother Diabetes Father Heart disease Surgical History S/P laparoscopic appendectomy (~05/23/18) Social History Smoking Status: Current every day smoker tobacco type: cigarettes alcohol intake: current alcohol intake frequency: a few times a week substance use type: does not use Audit: Pertinent Findings Pertinent Findings EKG Perinent findings: 05/23/2018. Normal sinus rhythm. Nonspecific ST abnormality. Recommendation Anesthesia Recommendation Anesthesia recommendation: F/U recommended (Would patient be able to get a repeat EKG prior to day of surgery. Last EKG is from 2018.)
--- NOTE | 2025-05-26 15:15 | PAT.ANESEVAL ---
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 When Was Last Pacemaker Check QUESTION #4 FULL TEXT: You/Your Family Experience fever (hyperthermia) with Anesthesia Last Oral Intake Last Oral intake: Last Oral Intake NPO since Meds taken in AM with sips of water? Meds patient instructed to take am of surgery PONV PONV - child support investigator: PONV - child support investigator Female No 05/24/25 11:07 HX of Motion Sickness No 05/24/25 11:07 HX of N/V After Surgery No 05/24/25 11:07 Non-Smoker No 05/24/25 11:07 Duration of Surgery greater Yes 05/24/25 11:07 than 60 minutes Number of Risk Factors 1 05/24/25 11:07 PONV Score Low Risk 05/24/25 11:07 Height & Weight Height & Weight: Anesthesia: Height & Weight Height 5 ft 4 in 05/19/25 13:21 Respiratory Assessment Respiratory Assessment - child support investigator: Respiratory Tract Infection Hx - child support investigator Hx Respiratory Tract Infection No 05/24/25 11:07 STOP Sleep Apnea STOP Sleep Apnea - child support investigator: STOP Sleep Apnea - child support investigator Hx Hypertension No 05/24/25 11:07 Hx Sleep Apnea No 05/24/25 11:07 CPAP BIPAP Do you snore loudly (louder No 05/24/25 11:07 than talking or can be heard Do you often feel tired/ No 05/24/25 11:07 fatigued/ sleepy during daytime? Has anyone observed you stop No 05/24/25 11:07 breathing during sleep? STOP Results Negative 05/24/25 11:07 QUESTION #5 FULL TEXT : Do you snore loudly (louder than talking or can be heard through closed doors)? 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 Specify any problems Hx of Preganancy in last 3 N/A 05/24/25 11:07 Months Nurse Filling Out Transfusion VCHRISTIN 05/24/25 11:07 & Questions: Date: 05/24/25 05/24/25 11:07 Time: 11:07 05/24/25 11:07 Patient unable to answer at this time (ie. confused, unrespo /Reproduction History /Reproductive History - child support investigator: /Reproductive Hx- child support investigator Hx Now No 05/24/25 11:07 Gestational Age (in weeks): EDC: Hx Hx Para Hx Section SAB No 05/24/25 11:07 [facility] Medical History (Updated 05/25/25 @ 00:00 by Marty Kennedy) Wears dentures Wears glasses History of steroid therapy Arthritis Blood in urine Back pain Injury of back Smoker History of pain when walking History of edema Perforated appendicitis Home Medications ?Medication ?Instructions ?Recorded ?Last Taken ?Type prednisone 10 mg tablet 10 mg PO DAILY #48 TABLETS 05/17/25 Unknown Rx naproxen sodium 220 mg capsule 220 mg PO BID PRN pain 05/19/25 Unknown History (Aleve) lidocaine 5 % topical patch 1 patch topical DAILY 05/24/25 Unknown History Allergy/AdvReac Type Severity Reaction Status Date / Time No Known Allergies Allergy Verified 05/24/25 10:52 Family History Mother Diabetes Father Heart disease Surgical History S/P laparoscopic appendectomy (~05/23/18) Social History Smoking Status: Current every day smoker tobacco type: cigarettes alcohol intake: current alcohol intake frequency: a few times a week substance use type: does not use Audit: Pertinent Findings HISTORY of Pertinent Findings History of Pertinent Findings: EKG Pertinent Findings EKG Perinent findings 05/23/2018. Normal sinus 05/25/25 17:[address] abnormality. Pertinent Findings EKG Perinent findings: EKG 05/25/2025. Low right atrial rhythm with short [place]. Nonspecific T wave abnormality Recommendation Anesthesia Recommendation Anesthesia recommendation: OPTIMIZED for anesthesia
--- NOTE | 2025-05-30 12:07 | PAT.ANE_ITS ---
Pre-Assessment Diagnosis/Proposed Procedure Planned Operative Procedure(s): Lumbar laminectomy discectomy L4-5 Anesthesia History Anesthesia History - concrete smoother: Anesthesia History - concrete smoother Hx Hospitalization No 05/24/25 11:07 Any Problems With Anesthesia No 05/24/25 11:07 Cholinesterase deficiency No 05/24/25 11:07 You/Your Family Experience No 05/24/25 11:07 fever (hyperthermia) with Relationship Recent Exposure to Contagious Disease Does patient have nerve No 05/24/25 11:07 stimulator Patient instructed to have device shut off --Does patient have Pacemaker or ICD? When Was Last Pacemaker Check QUESTION #4 FULL TEXT: You/Your Family Experience fever (hyperthermia) with Anesthesia Last Oral Intake Last Oral intake: Last Oral Intake NPO since Meds taken in AM with sips of water? Meds patient instructed to take am of surgery PONV PONV - concrete smoother: PONV - concrete smoother Female No 05/24/25 11:07 HX of Motion Sickness No 05/24/25 11:07 HX of N/V After Surgery No 05/24/25 11:07 Non-Smoker No 05/24/25 11:07 Duration of Surgery greater Yes 05/24/25 11:07 than 60 minutes Number of Risk Factors 1 05/24/25 11:07 PONV Score Low Risk 05/24/25 11:07 Height & Weight Height & Weight: Anesthesia: Height & Weight Height 5 ft 4 in 05/19/25 13:21 Respiratory Assessment Respiratory Assessment - concrete smoother: Respiratory Tract Infection Hx - concrete smoother Hx Respiratory Tract Infection No 05/24/25 11:07 STOP Sleep Apnea STOP Sleep Apnea - concrete smoother: STOP Sleep Apnea - concrete smoother Hx Hypertension No 05/24/25 11:07 Hx Sleep Apnea No 05/24/25 11:07 CPAP BIPAP Do you snore loudly (louder No 05/24/25 11:07 than talking or can be heard Do you often feel tired/ No 05/24/25 11:07 fatigued/ sleepy during daytime? Has anyone observed you stop No 05/24/25 11:07 breathing during sleep? STOP Results Negative 05/24/25 11:07 QUESTION #5 FULL TEXT : Do you snore loudly (louder than talking or can be heard through closed doors)? 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 Specify any problems Hx of Preganancy in last 3 N/A 05/24/25 11:07 Months Nurse Filling Out Transfusion VCHRISTIN 05/24/25 11:07 & Questions: Date: 05/24/25 05/24/25 11:07 Time: 11:07 05/24/25 11:07 Patient unable to answer at this time (ie. confused, unrespo /Reproduction History /Reproductive History - concrete smoother: /Reproductive Hx- concrete smoother Hx Now No 05/24/25 11:07 Gestational Age (in weeks): EDC: Hx Hx Para Hx Section SAB No 05/24/25 11:07 Active Medications Active Medications: Current Medications Generic Name Dose Route Start Last Admin Trade Name Freq PRN Reason Stop Dose Admin Acetaminophen 1,000 mg 05/31/25 14:00 Acetaminophen 500 Mg Tablet PO 05/31/25 14:01 PREOP ONE Cefazolin Sodium 2 gm/ Sodium 110 mls @ 150 mls/hr 05/31/25 14:00 Chloride IV 05/31/25 14:43 INTRAOP ONE Tranexamic Acid 1,000 mg/ 110 mls @ 440 mls/hr 05/31/25 14:00 Sodium Chloride IV 05/31/25 14:14 INTRAOP ONE Tranexamic Acid 1,000 mg/ 110 mls @ 440 mls/hr 05/31/25 15:00 Sodium Chloride IV 05/31/25 15:14 INTRAOP ONE Magnesium Sulfate 1 gm/ 102 mls @ 408 mls/hr 05/31/25 14:00 Dextrose IV 05/31/25 14:14 PREOP ONE Insulin Human Lispro 1 - 6 unit 05/31/25 14:00 Insulin Lispro 100 Unit/Ml Insuln.Pen SC 05/31/25 20:00 Q4H PRN PRN BG>/= 180, SEE PROTOCOL Protocol PFSH Medical History (Updated 05/30/25 @ 08:50 by Robyn Benitez) Diabetes Wears dentures Wears glasses History of steroid therapy Arthritis Blood in urine Back pain Injury of back Smoker History of pain when walking History of edema Perforated appendicitis Home Medications ?Medication ?Instructions ?Recorded ?Last Taken ?Type naproxen sodium 220 mg capsule 220 mg PO BID PRN pain 05/19/25 Unknown History (Aleve) lidocaine 5 % topical patch 1 patch topical DAILY 05/02 12/23 Unknown History metformin 500 mg tablet,extended 500 mg PO BID 5 Unknown History release 24 hr Allergy/AdvReac Type Severity Reaction Status Date / Time No Known Allergies Allergy Verified 05/30/25 08:49 Family History Mother Diabetes Father Heart disease Surgical History S/P laparoscopic appendectomy (~05/23/18) Social History Smoking Status: Current every day smoker tobacco type: cigarettes alcohol intake: current alcohol intake frequency: a few times a week substance use type: does not use Audit: Pertinent Findings HISTORY of Pertinent Findings History of Pertinent Findings: EKG Pertinent Findings EKG Perinent findings EKG 05/25/2025. Low right 05/26/25 15:15 atrial rhythm with short [place]. Nonspecific T wave abnormality EKG Perinent findings 05/23/2018. Normal sinus 05/25/25 17:[address] abnormality. Pertinent Findings Stress test pertinent findings: 05/29/2025. Stress test is negative. EF of 57%. No ischemia. No infarct. Recommendation Anesthesia Recommendation Anesthesia recommendation: OPTIMIZED for anesthesia
[2025-05-31] VITALS (10 sets, daily range): BP systolic 112–169; BP diastolic 73–84; PULSE 75–86; RESP 14–20; TEMP 36.1–36.8; O2SAT 97–100; BMI 19.3
[2025-05-31] MEDS: Lactated Ringers 1,000 ML 15 ML IV (12:38)
[2025-05-31] MEDS: Magnesium 1 GM over 15 mins IV (12:38)
--- NOTE | 2025-05-31 13:03 | PCM.HP.BLA ---
History and Physical Date of Admission: 05/31/25 MR#: [id number] Acct: [id number] Name: MALA SADLER BYRON Rep #: [id number] : 1950 Provider: Dr. Benedict Myrick MD Age/Sex: 74/M Location: [facility] [email or web address] Status: Signed Intake Vital Signs 05/19/2513:21 05/30/2508:48 Height 5 ft 4 in 5 ft 4 in Weight: 117 lb 117 lb BMI 20.0 20.0 Intake Visit Reasons: lumbar spine Chief Complaint: Lumbar spine pain Concrete Mason Required: No Accompanied by: Self Is patient in pain?: Yes (low back, b/l hip and BLE) Pain scale (1-10): 8 Allergies No Known Allergies Allergy (Verified 05/30/25 08:49) Medications ?Medication ?Instructions ?Recorded ?Confirmed ?Type naproxen sodium 220 mg capsule 220 mg PO BID PRN pain 05/19/25 05/30/25 History (Aleve) lidocaine 5 % topical patch 1 patch topical DAILY 05/24/25 05/30/25 History metformin 500 mg tablet,extended 500 mg PO BID 05/30/25 05/30/25 History release 24 hr Have you fallen in the past year?: No PFSH Medical History (Updated 05/30/25 @ 08:50 by Robyn Benitez) Diabetes Wears dentures Wears glasses History of steroid therapy Arthritis Blood in urine Back pain Injury of back Smoker History of pain when walking History of edema Perforated appendicitis Surgical History S/P laparoscopic appendectomy (~05/23/18) Family History Mother Diabetes Father Heart disease Social History Smoking Status: Current every day smoker tobacco type: cigarettes alcohol intake: current alcohol intake frequency: a few times a week substance use type: does not use HPI lumbar spine Details: This documentation accurately reflects the service provided and the decisions made by me, Dr. Benedict Myrick MD 05/30/25 0843. Part of today?s visit was documented by [ ], acting as scribe. MALA SADLER is a 74 year old M here today for pre-op L4-5 laminectomy discectomy. Reports low back pain continues to be severe but slightly improved since last visit. Pain exacerbated depending on movement or laying.Continues to have cane on hand with ambulation. Continued with difficulty with walking long distances or sitting for extended periods in same position. Reports recent diagnosis of diabetes after visit with PCP. To start oral diabetic medication, plans to start after surgery. Pre-op education completed. The patient is a 74-year-old male presenting with lumbar disc herniation with stenosis. The condition has been ongoing for three to four months, with pain radiating from the lower back down the legs, more pronounced on the left side. The patient has been using a cane for over a month due to pain and decreased walking distance. The patient has a recent diagnosis of diabetes mellitus, discovered during a routine check-up. The patient has not yet started medication but was advised to do so after surgery. The patient has a history of tobacco use, smoking approximately a pack a day, but has reduced to ten cigarettes daily over the past two weeks. The patient has been advised to quit smoking to reduce surgical risks and improve recovery outcomes. - Musculoskeletal: Reports pain radiating from the lower back down the legs, more pronounced on the left side. - Endocrine: Reports recent diagnosis of diabetes mellitus. - Respiratory: Denies shortness of breath. Attestation: Documentation on this patient encounter was supported using ambient scribe technology/ voice AI technology. The patient consented to recording for the purpose of documenting the encounter. Provider reviewed content of the generated note prior to signature. HPI 05/19/25 Patient states that his pain is a 10 today. He states that the pain is mainly on the left side of the lower back. Patient states that the pain feels like needles. He states that he will get pain going down the left leg, and will have numbness and tingling. The pain, numbness, tingling that he gets down the left leg is primarily located over the side of his left leg however he does feel like it includes his entire left leg. This goes all the way down to his toes. He also gets right foot numbness and tingling. Walking and standing increases his pain. He also continues to have pain with sitting however it does make it more tolerable. Says that he can only walk a couple steps at a time before the pain gets so bad that he has to lean forward or stop. Patient states that this has been going on for 3-4 months. He states that he didn't injure his back. Patient states that the pain just came on one day. He went to the chiropractor 14 times, and he stated that he thinks there is something more wrong with his lower back. Patient went to the [facility] and had an MRI done. The MRI showed 4-[address] Soto nurse stated that he needed to go to the [facility] to get ready for surgery. The [facility] referred the patient to us for his lower back. Patient states that he hasn't had any surgeries on his lower back before. He states that e has injured his back in 1985. Patient states that he was picking something up and he felt heat go right up his spine. He states that the pain went away after that. Patient states that sitting for a long period of time makes the pain worse. He states that walking long distances makes the pain worse. Patient states that the hasn't had any injections in his lower back. He states that he hasn't tried physical therapy. Patient has doesn't some exercises at home. The exercises that he has been doing aren't really helping. Patient states that he doesn't have any diabetes, or blood thinners. Patient states that he is a smoker, but doesn't do any drugs. Patient states that his balance is pretty good. He states that he uses a cane to help him walk better. He has been using the cane just for the last couple of months. Denies any incontinence. He has taken ibuprofen and Tylenol as needed without any significant benefit. Reviewed ER documentation from 04/12 and 05/17. Independent interpretation of the x-rays was performed. X-rays show a multilevel disc height loss throughout the lumbar spine, no significant instability on flexion and extension views, no acute fractures. Reviewed lumbar MRI from May 17, 2025 which showed a large L4-5 disc protrusion with facet arthrosis and ligamentum flavum hypertrophy which results in severe spinal stenosis. There is also a severe right foraminal stenosis at this level and and a moderate to severe left foraminal stenosis. There is a mild disc bulge at L3-4 and L5-S1 without any significant central canal stenosis and mild to moderate foraminal stenosis at these levels. Marked effacement of the lumbar canal L4/5 with compression of the cauda equina. Discussed options with the patient. Explained imaging findings in detail. Discussed options which includes epidural steroid injections with pain management versus surgery. Explained that surgery would include an L4-5 laminectomy discectomy. Explained the surgery in detail. Explained risks and benefits of the surgery. The patient does wish to proceed with surgical intervention at this time due to the severe findings on MRI and due to his severe amount of pain that he has been over the last 3 to 4 months which has been gradually worsening. The patient has not been able to walk upright since his pain began several months ago and he currently has been walking with a cane, prior to the pain starting 3 to 4 months ago he did not have to use any ambulatory devices. This pain has made it difficult for him to do what he wishes to do as he is not able to walk or stand for longer than several minutes at a time before he has to sit down. This has been decreasing his quality of life. Because of this surgery is necessary. Encouraged the patient to cut back on smoking as much as possible before the surgery to ensure proper healing. He will follow-up for preop appointment. Patient is in agreement. Ortho Exam General General: Yes no acute distress Neurologic: Yes alert and Yes oriented x3 Psychologic: Yes reasonable and appropriate Exam Narrative Physical examination of the lower extremity showed 5X5 power. Normal sensation across all dermatomes. Worsening pain with left leg muscle testing. Normal sensation across all dermatomes. No midline or paraspinal tenderness. Coding Level of Care Code Off vis,est,level 4 Diagnoses Lumbar stenosis with neurogenic claudication M48.062 Herniated nucleus pulposus, L4-5 M51.26 Time Spent (min) 35 Assessment and Plan Assessment and Plan (1) Lumbar stenosis with neurogenic claudication: Status: Acute (2) Herniated nucleus pulposus, L4-5: Status: Acute Plan Reviewed all previous imaging. X-rays show a multilevel disc height loss throughout the lumbar spine, no significant instability on flexion and extension views, no acute fractures. Reviewed lumbar MRI from May 17, 2025 which showed a large L4-5 disc protrusion with facet arthrosis and ligamentum flavum hypertrophy which results in severe spinal stenosis. There is also a severe right foraminal stenosis at this level and and a moderate to severe left foraminal stenosis. There is a mild disc bulge at L3-4 and L5-S1 without any significant central canal stenosis and mild to moderate foraminal stenosis at these levels. Marked effacement of the lumbar canal L4/5 with compression of the cauda equina. 1. Lumbar disc herniation with stenosis - Surgical intervention is planned to relieve nerve compression and improve symptoms. - The patient has been informed about the procedure, risks, and post-operative care, including the importance of early mobilization to prevent complications. 2. Diabetes mellitus - The patient is advised to start medication post-surgery to manage blood glucose levels and reduce infection risk. - Monitoring of blood glucose levels is essential to ensure they remain below critical thresholds on the day of surgery. 3. Tobacco use disorder - The patient is encouraged to quit smoking entirely to enhance surgical outcomes and reduce the risk of complications such as infection and delayed healing. - Follow all pre-surgery instructions, including fasting and medication guidelines. - Start diabetes medication as advised after surgery to control blood sugar levels. - Quit smoking to improve healing and reduce the risk of complications. - Engage in early mobilization post-surgery to prevent complications like blood clots. Discussed options with the patient. Explained imaging findings in detail. Discussed options which includes epidural steroid injections with pain management versus surgery. Explained that surgery would include an L4-5 laminectomy discectomy. Explained the surgery in detail.Discussed this procedure in detail and explained the risks, benefits and alternatives. The risks include but are not limited to infection, bleeding, hematoma formation, need for further surgery, need nerve root injury, persistent pain, persistent numbness and weakness, foot drop, DVT, pulmonary embolism, pneumonia, atelectasis, cardiopulmonary event, iatrogenic instability, need for fusion in future, recurrent disc herniation. Answered all questions to the patient?s satisfaction. Patient understands and agrees to proceed with surgery. Consent was signed.Follow up 2 weeks post operatively or sooner if pain, swelling, numbness or associated symptoms, or concerns develop. All questions answered. Patient in agreement of plan.
--- NOTE | 2025-05-31 13:20 | PCM.PRE.AN2 ---
ASA Classification* ASA Classification ASA Classification: 3 Assessment & Plan Anesthesia* Anesthesia Assessment Anesthesia Assessment: Discussed sedation and/or anesthesia options, risks, benefits, and alternatives with patient/parents/legal guardian/POA. Questions invited. The patient/parents/legal guardian/POA seems to understand and agrees to proceed with anesthesia plan. Reviewed the physical assessment, medical history, allergy history and patient home medications list prior to surgery/procedure/anesthetic and documented any changes. Performed airway and anesthesia risk assessments. Anesthesia Type Anesthesia Type: General History Source History Obtained from:: Patient and Chart Anesthesia Focused Assessment* Temperature: 98.2 F Pulse Rate: 85 Blood Pressure: 112/84 Respiratory Rate: 16 Pulse Ox: 100 Oxygen Delivery Method: Room Air Airway Assessment Mouth opens: >3 cm Mallampati Score: II Teeth Condition: Intact Neck Range of motion (ROM): Full ROM Labs Anesthesia Preop lab: CBC WBC, (4.4-11.0) 13.6 K/mm3 H 05/25/25, 08:52 RBC, (4.6-6.2) 4.49 M/mm3 L 05/25/25, 08:52 Hgb, (13.0-16.5) 15.1 g/dL 05/25/25, 08:52 Hct, (40-54) 44.0 % 05/25/25, 08:52 Plt Count, (150-450) 289 K/mm3 05/25/25, 08:52 CHEMISTRY Potassium, (3.3-5.1) 4.2 mmol/L 05/25/25, 08:52 Sodium, (133-145) 133 mmol/L 05/25/25, 08:52 Magnesium, (1.5-2.2) 2.3 mg/dL H 05/25/25, 08:53 BUN, (4-19) 22 mg/dL H 05/25/25, 08:52 Creatinine, (0.70-1.20) 0.72 mg/dL 05/25/25, 08:52 Glucose, (70-99) 232 mg/dL H 05/25/25, 08:52 COAG Pre-Assessment Diagnosis/Proposed Procedure Planned Operative Procedure(s): Lumbar laminectomy discectomy L4-5 Anesthesia History 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 When Was Last Pacemaker Check QUESTION #4 FULL TEXT: You/Your Family Experience fever (hyperthermia) with Anesthesia Last Oral Intake Last Oral intake: Last Oral Intake NPO since 18:00 05/31/25 12:24 Meds taken in AM with sips of No 05/31/25 12:24 water? Meds patient instructed to take am of surgery PONV PONV - road service locksmith: PONV - road service locksmith Female No 05/24/25 11:07 HX of Motion Sickness No 05/24/25 11:07 HX of N/V After Surgery No 05/24/25 11:07 Non-Smoker No 05/24/25 11:07 Duration of Surgery greater Yes 05/24/25 11:07 than 60 minutes Number of Risk Factors 1 05/24/25 11:07 PONV Score Low Risk 05/24/25 11:07 Height & Weight Height & Weight: Anesthesia: Height & Weight Height 5 ft 4.5 in 05/31/25 12:24 Weight: 52 kg 05/31/25 12:24 Body Mass Index (BMI) 19.3 05/31/25 12:24 Respiratory Assessment Respiratory Assessment - road service locksmith: Respiratory Tract Infection Hx - road service locksmith Hx Respiratory Tract Infection No 05/24/25 11:07 STOP Sleep Apnea STOP Sleep Apnea - road service locksmith: STOP Sleep Apnea - road service locksmith Hx Hypertension No 05/24/25 11:07 Hx Sleep Apnea No 05/24/25 11:07 CPAP BIPAP Do you snore loudly (louder No 05/24/25 11:07 than talking or can be heard Do you often feel tired/ No 05/24/25 11:07 fatigued/ sleepy during daytime? Has anyone observed you stop No 05/24/25 11:07 breathing during sleep? STOP Results Negative 05/24/25 11:07 QUESTION #5 FULL TEXT : Do you snore loudly (louder than talking or can be heard through closed doors)? Tobacco Use History Tobacco Use History - road service locksmith: Tobacco Use History - road service locksmith Tobacco Use Smoking Status Current every day smoker 05/24/25 11:07 Hx Tobacco Use Yes 05/24/25 11:07 Years Smoking Packs Smoked per Day Smoking Cessation Date was within the last 15 years Hx Smoking Cessation Date Hx Smoking Cessation Counseling Hematologic Medial History Hematologic Hx - road service locksmith: Hematologic Medical Hx - bulb tester Hx of Blood Transfusion No 05/24/25 11:07 Hx of Transfusion in last 3 No 05/24/25 11:07 Months Date of Last Transfusion (if within last 3 months) Ever experience any problems No 05/24/25 11:07 with transfusion(s)? Specify any problems Hx of Preganancy in last 3 N/A 05/24/25 11:07 Months Nurse Filling Out Transfusion VCHRISTIN 05/24/25 11:07 & Questions: Date: 05/24/25 05/24/25 11:07 Time: 11:07 05/24/25 11:07 Patient unable to answer at this time (ie. confused, unrespo /Reproduction History /Reproductive History - road service locksmith: /Reproductive Hx- road service locksmith Hx Now No 05/24/25 11:07 Gestational Age (in weeks): EDC: Hx Hx Para Hx Section SAB No 05/24/25 11:07 Active Medications Active Medications: Current Medications Generic Name Dose Route Start Last Admin Trade Name Taylor PRN Reason Stop Dose Admin Acetaminophen 1,000 mg 05/31/25 14:00 05/31/25 12:38 Acetaminophen 500 Mg Tablet PO 05/31/25 14:01 1,000 mg PREOP ONE Administration Cefazolin Sodium 2 gm/ Sodium 110 mls @ 150 mls/hr 05/31/25 14:00 Chloride IV 05/31/25 14:43 INTRAOP ONE Tranexamic Acid 1,000 mg/ 110 mls @ 440 mls/hr 05/31/25 14:00 Sodium Chloride IV 05/31/25 14:14 INTRAOP ONE Tranexamic Acid 1,000 mg/ 110 mls @ 440 mls/hr 05/31/25 15:00 Sodium Chloride IV 05/31/25 15:14 INTRAOP ONE Magnesium Sulfate 1 gm/ 102 mls @ 408 mls/hr 05/31/25 14:00 05/31/25 13:19 Dextrose IV 05/31/25 14:14 Infused PREOP ONE Infusion Lactated Ringer's 1,000 mls @ 15 mls/hr 05/31/25 12:00 05/31/25 12:38 IV 15 mls/hr .Q48H JENA Administration Insulin Human Lispro 1 - 6 unit 05/31/25 14:00 Insulin Lispro 100 Unit/Ml Insuln.Pen SC 05/31/25 20:00 Q4H PRN PRN BG>/= 180, SEE PROTOCOL Protocol PFSH Medical History Diabetes Wears dentures Wears glasses History of steroid therapy Arthritis Blood in urine Back pain Injury of back Smoker History of pain when walking History of edema Perforated appendicitis Home Medications ?Medication ?Instructions ?Recorded ?Last Taken ?Type naproxen sodium 220 mg capsule 220 mg PO BID PRN pain 05/19/25 Unknown History (Aleve) lidocaine 5 % topical patch 1 patch topical DAILY 05/24/25 Unknown History metformin 500 mg tablet,extended 500 mg PO BID 05/30/25 Unknown History release 24 hr Allergy/AdvReac Type Severity Reaction Status Date / Time No Known Allergies Allergy Verified 05/30/25 08:49 Family History Mother Diabetes Father Heart disease Surgical History S/P laparoscopic appendectomy (~05/23/18) Social History Smoking Status: Current every day smoker tobacco type: cigarettes alcohol intake: current alcohol intake frequency: a few times a week substance use type: does not use Prior Cardiac Testing/Procedures Prior Cardiac Testing/Procedures: Stress Test (Normal stress test on 05/29/25) Review of Systems (Anesthesia) ROS Narrative System reviewed and no additional complaints, except as documented. Physical Exam Const alert and oriented x3 Resp normal respiratory effort and normal air movement Auscultation: clear to auscultation bilaterally Cardio regular rate and regular rhythm Back/Spine normal ROM Neuro oriented x3 and moves all extremities
[2025-05-31] MEDS: Dexamethasone IV Preserv Free 10 MG/ML VIAL OPERA.SITE (13:30)
[2025-05-31] MEDS: Midazolam 2 MG/2 ML Syringe IV (13:45)
[2025-05-31] MEDS: Lidocaine 1% (5 ml sdv) 5 ML Vial IV (13:50)
[2025-05-31] MEDS: fentaNYL 100 MCG/2 ML Ampul IV (13:50)
[2025-05-31] MEDS: Cefazolin 1 GM/5 ML Vial 2 GM IV (13:55)
--- NOTE | 2025-05-31 13:57 | RAD_ITS ---
PROCEDURE: LUMBAR SPINE 2 OR 3 VIEWS 05/31/2025 REASON FOR EXAM: LUMBAR LAMINECTOMY DISCECTOMY L4-5 TECHNIQUE: Procedure Code: RADSPLL Modality: DX Procedure: LUMBAR SPINE 2 OR 3 VIEWS FINDINGS: Intraoperative fluoroscopy was performed. 4.5 seconds. 1.32 mGy. 2 images. See procedure report for full details. RAD/Lumbar Spine 2 or 3 Views IMPRESSION: As above. Reading Location: [id number]
[2025-05-31] MEDS: Lactated Ringers 2,000 ML 2000 ML IV (14:45)
[2025-05-31] MEDS: TRANEXAMIC ACID 1,000 MG/10 ML ML 2000 MG IV (15:16)
--- NOTE | 2025-05-31 15:43 | PCM.POST.ANE ---
Anesthesia: Postop Eval I Current Vital Signs Temperature: 97.1 F Pulse Rate: 83 Blood Pressure: 169/83 Respiratory Rate: 20 Pulse Ox: 100 Oxygen Delivery Method: Room Air Assessment Airway patent: Yes Spontaneous unlabored respirations: Yes Mental status: Awake and Calm nausea: No Vomiting: No Anesthesia Complication: No Fluid Hydration Crystalloid volume administer (ml): 1,600 Total IV fluid infused: 1,600 Progress Note Anesthesia document: Postop Eval 1 completed: Yes
--- NOTE | 2025-05-31 15:55 | PCM.OPRPT ---
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 right radiculopathy Post-Operative Diagnosis: Same Surgery/Procedure Performed: L4-5 laminectomy, partial facetectomy, decompression with discectomy ad operations coordinator: Yes Dog Or Animal Sitter: Chelsea Hart Tasks completed by dyer assistant: Closing, Removing tissue, Hemostasis: Electrocautery and Retracting Type of Anesthesia: General RN Documented Start/Stop Times: Operation Date: 05/31/25 14:00 Case Time Into Pre-Op 05/31/25 11:49 Anesthesia Start 05/31/25 13:45 Into Room 05/31/25 13:45 Procedure Start 05/31/25 14:10 Out of Pre-Op 05/31/25 14:24 Procedure End 05/31/25 15:30 Anesthesia End 05/31/25 15:38 Out of Room 05/31/25 15:38 Into Recovery 05/31/25 15:40 Procedure Start Time: 14:10 Procedure Stop Time: 15:30 Select all DRAINS/GRAFTS/IMPLANTS that apply: None Estimated Blood Loss: 20 cc Specimen collected: No Description of surgery: Preoperative diagnosis: L4-5 central lateral recess stenosis bilateral, neurogenic claudication, central disc herniation Postoperative diagnosis: Same Name of procedure: L4-5 open laminectomy, partial facetectomy decompression, discectomy CPT 33930 Attending Surgeon: Dr. Benedict Myrick Estimated blood loss: 20 mL Anesthesia: General Indications: Patient is a 74-year-old gentleman who presented with low back pain and left fourth and right lower extremity radiation, with difficulty walking distances and neurogenic claudication. MRI revealed L4-5 central and bilateral lateral recess stenosis from flavum hypertrophy, facet arthropathy and central disc herniation slightly worse on the left than the right. All options of treatment were discussed which included continued nonoperative treatment measures like rest physical therapy, injections. After prolonged nonsurgical treatment, patient requested surgical intervention for laminectomy decompression. All risks and benefits associated with the procedure were explained to the patient. The risks include but are not limited to infection, bleeding, injury to nerves and vessels, persistent paresthesia, incidental dural tear, recurrent disc herniation, spinal instability and need for fusion or other procedures in future, persistent pain, persistent weakness and numbness, etc. Procedure: The patient was identified in the preoperative holding suite using Unique patient identifiers. Skin was marked, consent was reviewed, and all questions were answered. The patient was then brought back to the operative room. A surgical timeout was performed to make sure correct procedure was being done on the correct patient and all operative room staff were on the same page. General endotracheal anesthesia was then given to the patient. The patient was then turned prone onto a Reji table over a David frame. The back was prepped and draped in usual fashion. Preoperative antibiotic was given. A final timeout was then again done just before starting the procedure. An 18-gauge spinal needle was inserted and level was identified. An incision was then carried out approximately 1 inch length in the midline. Bovie was utilized to dissect through the subcutaneous tissue up to the fascia. The fascia was bovied at the spinous process. Subperiosteal dissection was carried out along the both side of the spinous process and the lamina. This dissection was stopped at the level of the medial capsule of the facet joint. Lateral edge of the pars was also identified. A [place] was then placed under the inferior edge of the lamina and a C-arm lateral view was repeated. The level was confirmed to be the L4-5 interspace. A Espinoza retractor of appropriate depth was then placed to provide retraction throughout the remainder of the surgery. A bone cutter was used to remove the spinous process. Diagnostic [employer] bone scalpel was then utilized to first create a score along the area of the laminectomy. Care was taken to preserve at least 1 cm of bone from the lateral border of the pars. The bone scalpel was then advanced to perform the cuts along this score. The lamina was then removed with the help of procedures. The flavum was utilized to protect the dura and superior articular process was carefully from the flavum. Partial medial facetectomy was performed to provide adequate lateral recess decompression. Superior portion of L5 lamina was also removed with help of Russrisjason. All of the flavum was eventually removed. On the left side, dura and left L5 traversing nerve root were carefully retracted medially using a nerve root retractor. Extruded disc fragments were removed after making a cruciate incision on the annulus. Loose disc fragments from the disc space were also removed. Once decompression was adequately assessed with Pradeep in both L5 and L4 foramina bilaterally, irrigation was done with normal saline. Valsalva maneuver up to 40 mmHg pressure sustained was then done by anesthesia for a few seconds to confirm no dural leak. Irrisept was kept in the wound for 1 minute and then rinsed with saline. 10 mg of preservative-free dexamethasone was then sprinkled over the dura and traversing nerve roots bilaterally. A small piece of Gelfoam was then placed over the bony window. The Espinoza retractor was then removed. And closure was done in layers, 0 Vicryl for the deep fascia, 2-0 Vicryl for subcutaneous tissue, and tucker for the skin. The deep fascial layer was closed in a watertight fashion with interrupted 0 Vicryl. 2 x 2 gauze was then placed over the wound covered with Tegaderm. The patient was then turned supine onto a hospital bed. The patient was extubated and taken to PACU in stable condition. The patient tolerated the procedure well and no complications occurred. Estimated blood loss for the entire surgery was 20 mL. No instrumentation was utilized in this case. No dural tear occurred in this case. I was present for the entirety of the case and performed the surgery myself. Fire Management Specialist Chelsea Hart PA-C. My physician sales office assistant was a vital part of this case. They were important in appropriate retraction during the case, and protection of soft tissues during the procedure. Their intimate knowledge of the case and my steps aided in safe and expedient completion of the procedure as well as appropriate position of the patient during the surgery. They were also vital in assisting with closure under my direct supervision. Surgical Findings: See operative note Complications Complications: No
--- NOTE | 2025-05-31 18:41 | POSTOPAN2_ITS ---
Anesthesia Postop Eval I Sum Postop Eval Completion status Anesthesia document: Postop Eval 1 completed: Yes Anesthesia Postop Eval I Summary Anesthesia Postop Eval I Summary: Anesthesia Postop Eval I: Assessment Summary Airway patent Yes 05/31/25 15:44 [email or web address] [email or web address] Spontaneous unlabored Yes 05/31/25 15:44 BLENDING [email or web address].[email or web address] respirations Mental status Awake,Calm 05/31/25 15:44 BLENDING [email or web address].[email or web address] nausea No 05/31/25 15:44 BLENDING COORDINATOR.[email or web address] Vomiting No 05/31/25 15:44 BLENDING [email or web address].[email or web address] Anesthesia Postop Eval I: Fluid Summary Crystalloid volume administer 1,600 05/31/25 15:44 BLENDING [email or web address].[email or web address] (ml) Colloids volume administered ( ml) Blood Product volume administered (ml) Total IV fluid infused 1,600 05/31/25 15:44 BLENDING [email or web address].[email or web address] Anesthesia Postop Eval I: Summary Notes Anesthesia Complication No 05/31/25 15:44 BLENDING [email or web address].[email or web address] Anesthesia Complication Comment: Post-operative progress note Anesthesia: Postop Eval II Evaluation Mental status: Awake and Calm Pain Level: 2 nausea: No Vomiting: No Complications Anesthesia Complication: No
--- NOTE | 2025-05-31 18:41 | PCM.POSTANE2 ---
Anesthesia Postop Eval I Sum Postop Eval Completion status Anesthesia document: Postop Eval 1 completed: Yes Anesthesia Postop Eval I Summary Anesthesia Postop Eval I Summary: Anesthesia Postop Eval I: Assessment Summary Airway patent Yes 05/31/25 15:44 MOTORIZED SQUAD COMMANDING OFFICER.[email or web address] Spontaneous unlabored Yes 05/31/25 15:44 MOTORIZED SQUAD COMMANDING OFFICER.[email or web address] respirations Mental status Awake,Calm 05/31/25 15:44 MOTORIZED SQUAD COMMANDING OFFICER.[email or web address] nausea No 05/31/25 15:44 MOTORIZED SQUAD COMMANDING OFFICER.[email or web address] Vomiting No 05/31/25 15:44 MOTORIZED SQUAD COMMANDING OFFICER.[email or web address] Anesthesia Postop Eval I: Fluid Summary Crystalloid volume administer 1,600 05/31/25 15:44 MOTORIZED SQUAD COMMANDING OFFICER.[email or web address] (ml) Colloids volume administered ( ml) Blood Product volume administered (ml) Total IV fluid infused 1,600 05/31/25 15:44 MOTORIZED SQUAD COMMANDING OFFICER.[email or web address] Anesthesia Postop Eval I: Summary Notes Anesthesia Complication No 05/31/25 15:44 MOTORIZED SQUAD COMMANDING OFFICER.[email or web address] Anesthesia Complication Comment: Post-operative progress note Anesthesia: Postop Eval II Evaluation Mental status: Awake and Calm Pain Level: 2 nausea: No Vomiting: No Complications Anesthesia Complication: No
== END 2025-05-31 17:34 | disposition home or self-care (01) ==
LOC: SDC 11:46 → AC 11:46
PROVIDERS: Anesthesiology; PCP Family Medicine; Referring Provider Orthopaedic Surgery Orthopaedic Surgery of the Spine; Visit Provider Orthopaedic Surgery Orthopaedic Surgery of the Spine
PROC: (CPT 63030; principal; 2025-05-31 13:30)
DX: M48.062 Spinal stenosis, lumbar region with neurogenic claudication (principal); E11.9 Type 2 diabetes mellitus without complications; M51.16 Intervertebral disc disorders with radiculopathy, lumbar region; F17.210 Nicotine dependence, cigarettes, uncomplicated; Z79.84 Long term (current) use of oral hypoglycemic drugs
CPT/HCPCS: 63047; 00630; 36415; 72100; 76000; 80048; 82962; 83036; 83735; 85025; 86850; 86900; 86901; 87081; 93005; J2405; J3475